=== PATIENT | male | born 1945 | race Caucasian/White ===

== ENCOUNTER → 2016-03-31 | Outpatient (CLI) | payer MEDICARE, BC ==
[2016-03-31 12:58] LABS: PROTHROMBIN TIME 21.7 SEC (11.4-15.4)
== END ==
LOC: OD 11:55
PROVIDERS: ATTEND Internal Medicine
DX: I48.0 Paroxysmal atrial fibrillation (principal)
CPT/HCPCS: 36415; 85610

== ENCOUNTER 2016-04-21 05:54 | Day surgery (SDC) | payer MEDICARE, BC ==
--- NOTE | 2016-04-15 10:51 | HISTORY AND PHYSICAL E ---
History and Physical NAME: ANGELITO SORTO : 1945 AGE: 71Y ADMITTED: 04/21/2016 ROOM: CHIEF COMPLAINT: Blood in the stool, anemia, occult GI bleed. HISTORY OF PRESENT ILLNESS: Patient admitted for upper endoscopy. The patient did have colonoscopy 09/01/2015, shows adenoma polyps and hemorrhoids, continued to have multiple transfusions, and he takes Coumadin. Because of multiple morbidities and the patient has difficulty with sedation, we feel it is indicated to be done with OR Anesthesia standby because he has a poor tolerance for sedation. At this time, the patient is being admitted for upper endoscopy to be done in the OR. Colonoscopy 01/08/2016 showing polyps. We did him in the OR, and the patient is on Coumadin. The patient did have barium swallow, it showed a question of lower esophageal ring, otherwise normal. Colonoscopy was done, and he did have polyps. Because of persistent blood in the stool and anemia, the patient is being admitted for upper endoscopy to be done in the OR with Anesthesia standby. His barium swallow 12/23/2015 shows a large hiatus hernia 5.7 cm, question of lower esophageal ring, reflux. Esophagus otherwise normal. Large hiatus hernia. His hemoglobin is 13, hematocrit 31. His INR is 1. The patient did have iron 62. PAST MEDICAL HISTORY: The patient does have: 1. Sleep apnea. 2. Coronary artery disease. 3. Atrial fibrillation. 4. Pacemaker. 5. High cholesterol. 6. Sleep apnea. 7. Anemia. 8. Large hiatus hernia. PAST SURGICAL HISTORY: 1. He did have a cardiac ablation. 2. Inguinal hernia. 3. He does have a pacemaker. 4. The patient does have history of colon polyps. MEDICATIONS: The patient takes: 1. Coumadin/warfarin. 2. Ferrous sulfate. 3. Atenolol. SOCIAL HISTORY: The patient is , does not smoke, does not drink. FAMILY HISTORY: Father had an accident. Mom had Alzheimer's. PHYSICAL EXAMINATION: GENERAL: Pleasant, alert, oriented, in no acute distress. VITAL SIGNS: Blood pressure is 120/80, pulse 80, respirations 18, temperature is 98. HEAD, EYES, EARS, NOSE, THROAT: Normal. NECK: Supple. LUNGS: Clear. ABDOMEN: Soft. NEUROLOGIC: Negative. CONCLUSION: 1. Sleep apnea. 2. Difficult to sedate. 3. Multiple comorbidities with sleep apnea. PLAN: The patient is to be scoped with Anesthesia standby, scheduled for 04/21/2016. Today is 04/14/2016, upper scope in the OR 04/21. DICTATING PHYSICIAN: SIA MENDEZ M.D. [id number] PHY#: [id number] ID: [id number] JOB#: [id number] ACCT: [id number] cc:SIA MENDEZ M.D. >
[2016-04-19 12:21] LABS: HEMATOCRIT 34.6 % (37.9-51.0); HGB HCT DIFFERENCE -1.6; MEAN CORPUSCULAR HEMOGLOBIN 24.7 pg (27.0-33.4); MEAN CORPUSCULAR HGB CONC 31.8 g/dL (32.0-36.0); MEAN CORPUSCULAR VOLUME 78 fl (80-97); RED BLOOD COUNT 4.46 10^6/uL (4.35-5.55); RED CELL DISTRIBUTION WIDTH 19.4 % (11.5-14.0); WHITE BLOOD COUNT 6.2 10^3/uL (4.0-10.5)
[~2016-04-21 05:54] MED LIST: LACTATED RINGERS 1000 ML IV PRN; LIDOCAINE 0.5% INJ-PF (5 MG/ML) 50 ML SDV SUBCUT PRN
[2016-04-21 06:39] LABS: PROTHROMBIN TIME 14.6 SEC (11.4-15.4)
[2016-04-21 06:40] LABS: PARTIAL THROMBOPLASTIN TIME 26.6 SEC (23.5-35.8)
[2016-04-21] MEDS ORDERED: PROPOFOL INJ 200 MG/20 ML VIAL IV ONE (06:43)
[2016-04-21] MEDS ORDERED: ONDANSETRON HCL INJ/PF 4 MG/2 ML SDV IV PRN (08:18)
[2016-04-21] MEDS ORDERED: DIPHENHYDRAMINE HCL 50 MG/ML VIAL IV PRN (08:18)
[2016-04-21] MEDS ORDERED: PROMETHAZINE HCL INJ 25 MG/1 ML VIAL IV PRN (08:18)
[2016-04-21 10:35] LABS: HEMATOCRIT 32.6 % (37.9-51.0); HGB HCT DIFFERENCE -2.6; MEAN CORPUSCULAR HEMOGLOBIN 24.1 pg (27.0-33.4); MEAN CORPUSCULAR HGB CONC 30.6 g/dL (32.0-36.0); MEAN CORPUSCULAR VOLUME 79 fl (80-97); RED BLOOD COUNT 4.14 10^6/uL (4.35-5.55); RED CELL DISTRIBUTION WIDTH 19.2 % (11.5-14.0); WHITE BLOOD COUNT 4.7 10^3/uL (4.0-10.5)
[2016-04-21 11:09] LABS: CREATINE KINASE MB 0.66 ng/mL (<4.55)
[2016-04-21 11:10] LABS: TROPONIN I < 0.012 ng/mL
[2016-04-21 11:28] LABS: CARCINOEMBRYONIC ANTIGEN 0.7 ng/mL (<3.0)
[2016-04-21] MEDS ORDERED: LIDOCAINE 2% INJ-PF (20 MG/ML) 10 ML AMPUL ONE (12:40)
--- NOTE | 2016-04-21 14:59 | EKG REPORT ---
SEVERITY:- ABNORMAL ECG - ATRIAL-PACED COMPLEXES LOW VOLTAGE IN FRONTAL LEADS : Confirmed by: Rosemarie Stafford MD 21-Apr-2016 14:58:35
[2016-04-21] MEDS ORDERED: SIMVASTATIN 40 MG TABLET PO ONE (16:00)
[2016-04-21] MEDS ORDERED: FERROUS SULFATE 325 MG TABLET PO ONE (16:00)
[2016-04-21] MEDS ORDERED: BENAZEPRIL HCL 20 MG TABLET PO ONE (16:00)
[2016-04-21] MEDS ORDERED: ALLOPURINOL 300 MG TABLET PO ONE (16:00)
[2016-04-21] MEDS ORDERED: ATENOLOL 50 MG TABLET PO ONE (16:00)
[2016-04-21 17:41] VITALS: BP 125/76
[2016-04-21] MEDS ORDERED: SIMVASTATIN 40 MG TABLET PO SCH (22:00)
[2016-04-21] MEDS ORDERED: PROPAFENONE 225 MG PO SCH (22:00)
--- NOTE | 2016-04-22 08:15 | DISCHARGE SUMMARY E ---
Discharge Summary NAME: ANGELITO SORTO : 1945 AGE: 71Y ADMITTED: 04/21/2016 DISCHARGED: 04/21/2016 HOSPITAL COURSE: A 71-year-old male underwent outpatient endoscopy for recurrent occult GI bleed and stools positive for blood x3. He did have upper scope today in the OR with anesthesia standby. There was a polypoid lesion in the descending duodenum. Unfortunately, the picture we took during the endoscopy failed to be printed. There was a malfunction of the printer. We obtained CT scan, and I reviewed the CT scan with Dr. Herrera, and the patient does have a good-sized polypoid lesion adjacent to the ampulla. A tertiary consult was done with Dr. Kim Grayson at [facility], and she is going to see the patient early next week for repeat endoscopy and consideration for polypectomy and/or small bowel enteroscopy. DISCHARGE INSTRUCTIONS: The patient is being discharged on a soft diet, and he is to go on Lovenox subcutaneous 100 mg daily, and we are going to stop his Coumadin and aspirin. An appointment is being made for him to be seen by Dr. Kim Grayson at [facility]. . The patient has the following problems: 1. Coronary artery disease. 2. Atrial fibrillation. 3. Pacemaker. 4. Sleep apnea. 5. Anemia. 6. Large hiatus hernia. He did have colonoscopy 09/01/2015 showing adenoma polyps and hemorrhoids. Pending evaluation and further followup with Dr. Kim Grayson at [facility]. DICTATING PHYSICIAN: SIA MENDEZ M.D. [id number] PHY#: [id number] ID: [id number] JOB#: [id number] ACCT: [id number] cc:SIA MENDEZ M.D. >
--- NOTE | 2016-04-22 08:18 | DISCHARGE SUMMARY E ---
Discharge Summary NAME: ANGELITO SORTO : 1945 AGE: 71Y ADMITTED: 04/21/2016 DISCHARGED: 04/21/2016 HOSPITAL COURSE: The patient is a 71-year-old male who presented for upper endoscopy. The patient had endoscopy in the OR which showed a polypoid lesion or pedunculated polyp and on the surrounding of the stalk, there was some vascularity of the mucosa. All in all, the patient does have a polypoid lesion in the duodenal bulb with thick stalk and some irregularity in the mucosa. The patient has defibrillator. His stool is positive for blood. Hemoglobin 11, hematocrit 34. The patient did have recent colonoscopy . His colonoscopy showed adenomatous polyp. He had multiple transfusions and Coumadin. He has multiple morbidities and difficult sedation. Upper endoscope achieved in the OR without difficulty. FINAL DIAGNOSIS: 1. Hiatus hernia. 2. Duodenal polyp. 3. The patient does have a history of sleep apnea, atrial fibrillation, and pacemaker. DISCHARGE PLAN: 1. Repeat lab studies. 2. Will make arrangement to transfer to tertiary center. DICTATING PHYSICIAN: SIA MENDEZ M.D. [id number] PHY#: [id number] ID: [id number] JOB#: [id number] ACCT: [id number] cc:SIA MENDEZ M.D. >
--- NOTE | 2016-04-22 08:28 | OPERATIVE REPORT E ---
Operative Report NAME: ANGELITO SORTO : 1945 AGE: 71Y DATE OF SURGERY: 04/21/2016 ROOM: 528 PREOPERATIVE DIAGNOSES: 1. Blood in the stool. 2. Occult GI bleed. The patient is on Coumadin and aspirin. 3. Anemia. POSTOPERATIVE DIAGNOSES: 1. Small hiatus hernia. 2. Duodenal polyp or tumor on a pedunculated thick stalk with some irregularity of the mucosa around the polyp. The patient has a duodenal polyp on a thick stalk with some vascularity around the duodenal area. The lesion is about 2 cm thick stalk. The patient is high risk. I elect to send him to a tertiary center for further evaluation and possible removal of that lesion by endoscopy in the tertiary center. The patient has defibrillator and is on Coumadin and he is at risk. PROCEDURES: 1. Esophagoscopy. 2. Gastroscopy. 3. Duodenoscopy. SURGEON: SIA MENDEZ M.D. ANESTHESIA: The patient was done in the OR with anesthesia standby. He is on Coumadin 5 mg, aspirin, iron, Lotensin, Tenormin and Zocor. PROCEDURE: After the patient was sedated in OR with conscious sedation with propofol, the pediatric gastroscope passed under guided vision with no difficulty. PREOPERATIVE DIAGNOSIS: The patient is a 47-year-old female with abdominal pain, reflux. POSTOPERATIVE DIAGNOSES: 1. Esophagitis, mild. 2. Gastritis, mild. 3. Duodenitis, mild. PROCEDURES: 1. Esophagoscopy. 2. Gastroscopy. 3. Duodenoscopy. SURGEON: SIA MENDEZ M.D. TISSUE REMOVED OR ALTERED: Gastric biopsy, H pylori. ANESTHESIA: Versed 4, fentanyl 100. DESCRIPTION OF PROCEDURE: The baby scope passed under guided vision. No difficulties. Esophagoscopy: Junction at 40 cm: Small hiatus hernia, no varices or bleeding in the esophagus. Gastroscopy: No evidence of ulcers. Duodenoscopy: Duodenal bulb shows mild duodenitis. Descending duodenum shows a polypoid lesion with thick stalk, and the polyp looked vascular. I did not feel comfortable removing this polyp because patient is high risk. We are going to send him to tertiary center for second endoscopy and possibility of removing the polyp. CONCLUSION: Duodenal polyp versus lesion. PLAN: Refer to tertiary center. DICTATING PHYSICIAN: SIA MENDEZ M.D. [id number] PHY#: [id number] ID: [id number] JOB#: [id number] ACCT: [id number] cc:SIA MENDEZ M.D. >
[2016-04-22] MEDS ORDERED: ATENOLOL 50 MG TABLET PO SCH (10:00)
[2016-04-22] MEDS ORDERED: FERROUS SULFATE 325 MG TABLET PO SCH (10:00)
[2016-04-22] MEDS ORDERED: ALLOPURINOL 300 MG TABLET PO SCH (10:00)
[2016-04-22] MEDS ORDERED: PROPAFENONE HCL 225 MG PO SCH (10:00)
[2016-04-22] MEDS ORDERED: BENAZEPRIL HCL 20 MG TABLET PO SCH (10:00)
== END 2016-04-21 18:37 | disposition home or self-care (01) ==
LOC: OROUT 05:54 → 5 14:04 → OROUT 18:37
PROVIDERS: ATTEND Specialist
PROC: 0DJ08ZZ Inspection of Upper Intestinal Tract, Via Natural or Artificial Opening Endoscopic (ICD-10-PCS; principal; 2016-04-21 08:00)
DX: K21.0 Gastro-esophageal reflux disease with esophagitis (principal); K29.70 Gastritis, unspecified, without bleeding; K29.80 Duodenitis without bleeding; K44.9 Diaphragmatic hernia without obstruction or gangrene; K31.7 Polyp of stomach and duodenum; Z79.01 Long term (current) use of anticoagulants; R97.8 Other abnormal tumor markers; G47.30 Sleep apnea, unspecified; I48.91 Unspecified atrial fibrillation; I25.10 Atherosclerotic heart disease of native coronary artery without angina pectoris; D64.9 Anemia, unspecified; E78.00 Pure hypercholesterolemia, unspecified; Z79.82 Long term (current) use of aspirin; Z95.810 Presence of automatic (implantable) cardiac defibrillator
CPT/HCPCS: 43235; 36415 ×2; 86301; 82553; 84520; 82378; 82550; 82565; 85027 ×2; 85610; 85730; 84484; 74177; 93005; 93010; A9270; J2704; J3490; 740

== ENCOUNTER → 2016-04-27 | Outpatient (CLI) | payer MEDICARE, BC ==
[2016-04-27 11:33] LABS: ABSOLUTE EOSINOPHILS # (AUTO) 0.2 10^3/uL (0.0-0.6); ABSOLUTE MONOCYTES (AUTO) 0.4 10^3/uL (0.1-1.4); ABSOLUTE NEUT (AUTO) 3.1 10^3/uL (1.7-8.2); BASOPHILS % (AUTO) 0.9 % (0-2); EOSINOPHILS % (AUTO) 5.1 % (0-6); HEMATOCRIT 35.8 % (37.9-51.0); HEMOGLOBIN 11.3 g/dL (13.5-17.0); HGB HCT DIFFERENCE -1.9; LYMPHOCYTES % (AUTO) 20.2 % (13-45); MEAN CORPUSCULAR HEMOGLOBIN 24.5 pg (27.0-33.4); MEAN CORPUSCULAR HGB CONC 31.6 g/dL (32.0-36.0); MEAN CORPUSCULAR VOLUME 78 fl (80-97); MONOCYTES % (AUTO) 7.9 % (3-13); RED BLOOD COUNT 4.62 10^6/uL (4.35-5.55); RED CELL DISTRIBUTION WIDTH 19.3 % (11.5-14.0); SEGMENTED NEUTROPHILS % (AUTO) 65.9 % (42-78); WHITE BLOOD COUNT 4.8 10^3/uL (4.0-10.5)
== END ==
LOC: OD 10:37
PROVIDERS: ATTEND Specialist
DX: D50.9 Iron deficiency anemia, unspecified (principal)
CPT/HCPCS: 36415; 85025

== ENCOUNTER → 2016-07-13 | Outpatient (CLI) | payer MEDICARE, BC ==
[2016-07-13 17:29] LABS: PROTHROMBIN TIME 17.8 SEC (11.4-15.4)
== END ==
LOC: OD 16:38
PROVIDERS: ATTEND Internal Medicine
DX: I48.0 Paroxysmal atrial fibrillation (principal)
CPT/HCPCS: 36415; 85610

== ENCOUNTER → 2016-08-02 | Outpatient (CLI) | payer MEDICARE, BC ==
[2016-08-02 15:03] LABS: PROTHROMBIN TIME 32.4 SEC (11.4-15.4)
== END ==
LOC: OD 14:13
PROVIDERS: ATTEND Internal Medicine
DX: I48.0 Paroxysmal atrial fibrillation (principal)
CPT/HCPCS: 36415; 85610

== ENCOUNTER → 2016-09-01 | Outpatient (CLI) | payer MEDICARE, BC ==
[2016-09-01 15:06] LABS: PROTHROMBIN TIME 19.7 SEC (11.4-15.4)
== END ==
LOC: OD 13:52
PROVIDERS: ATTEND Internal Medicine
DX: I48.0 Paroxysmal atrial fibrillation (principal)
CPT/HCPCS: 36415; 85610

== ENCOUNTER → 2016-09-29 | Outpatient (CLI) | payer MEDICARE, BC ==
[2016-09-29 14:24] LABS: PROTHROMBIN TIME 28.2 SEC (11.4-15.4)
[2016-09-29 14:27] LABS: ABSOLUTE EOSINOPHILS # (AUTO) 0.2 10^3/uL (0.0-0.6); ABSOLUTE LYMPHOCYTES (AUTO) 1.4 10^3/uL (0.5-4.7); ABSOLUTE MONOCYTES (AUTO) 0.3 10^3/uL (0.1-1.4); ABSOLUTE NEUT (AUTO) 4.1 10^3/uL (1.7-8.2); BASOPHILS % (AUTO) 0.5 % (0-2); EOSINOPHILS % (AUTO) 3.5 % (0-6); HEMATOCRIT 39.6 % (37.9-51.0); HEMOGLOBIN 12.6 g/dL (13.5-17.0); HGB HCT DIFFERENCE -1.8; LYMPHOCYTES % (AUTO) 22.5 % (13-45); MEAN CORPUSCULAR HEMOGLOBIN 27.2 pg (27.0-33.4); MEAN CORPUSCULAR VOLUME 85 fl (80-97); MONOCYTES % (AUTO) 5.3 % (3-13); RED BLOOD COUNT 4.64 10^6/uL (4.35-5.55); RED CELL DISTRIBUTION WIDTH 16.2 % (11.5-14.0); SEGMENTED NEUTROPHILS % (AUTO) 68.2 % (42-78); WHITE BLOOD COUNT 6.1 10^3/uL (4.0-10.5)
[2016-09-29 14:49] LABS: ANISOCYTOSIS 1+; OVALOCYTES SLIGHT; POIKILOCYTOSIS SLIGHT; TARGET CELLS SLIGHT; TEAR DROP CELLS SLIGHT
== END ==
LOC: OD 13:32
PROVIDERS: ATTEND Internal Medicine
DX: D64.9 Anemia, unspecified (principal); N40.1 Benign prostatic hyperplasia with lower urinary tract symptoms; I48.0 Paroxysmal atrial fibrillation
CPT/HCPCS: 36415; 84153; 85025; 85610

== ENCOUNTER → 2016-10-28 | Outpatient (CLI) | payer MEDICARE, BC ==
[2016-10-28 16:04] LABS: PROTHROMBIN TIME 26.2 SEC (11.4-15.4)
== END ==
LOC: OD 15:14
PROVIDERS: ATTEND Internal Medicine
DX: I48.0 Paroxysmal atrial fibrillation (principal)
CPT/HCPCS: 36415; 85610

== ENCOUNTER 2016-10-30 23:46 | Emergency (ER) | payer MEDICARE, BC ==
[2016-10-31] MEDS ORDERED: ASPIRIN 81 MG TABLET, CHEWABLE PO ONE (00:18)
[2016-10-31 00:46] LABS: ABSOLUTE EOSINOPHILS # (AUTO) 0.4 10^3/uL (0.0-0.6); ABSOLUTE LYMPHOCYTES (AUTO) 1.4 10^3/uL (0.5-4.7); ABSOLUTE MONOCYTES (AUTO) 0.4 10^3/uL (0.1-1.4); BASOPHILS % (AUTO) 0.5 % (0-2); EOSINOPHILS % (AUTO) 6.1 % (0-6); HEMATOCRIT 39.2 % (37.9-51.0); HGB HCT DIFFERENCE -0.2; LYMPHOCYTES % (AUTO) 22.4 % (13-45); MEAN CORPUSCULAR HEMOGLOBIN 28.2 pg (27.0-33.4); MEAN CORPUSCULAR HGB CONC 33.2 g/dL (32.0-36.0); MEAN CORPUSCULAR VOLUME 85 fl (80-97); RED CELL DISTRIBUTION WIDTH 14.4 % (11.5-14.0); WHITE BLOOD COUNT 6.1 10^3/uL (4.0-10.5)
[2016-10-31 01:11] LABS: ALANINE AMINOTRANSFERASE 17 U/L (21-72); ALBUMIN 3.7 g/dL (3.5-5.0); ALKALINE PHOSPHATASE 61 U/L (38-126); ANION GAP 11 (5-19); ASPARTATE AMINO TRANSFERASE 11 U/L (17-59); BILIRUBIN,DIRECT 0.3 mg/dL (0.0-0.4); BILIRUBIN,TOTAL 0.3 mg/dL (0.2-1.3); BLOOD UREA NITROGEN 12 mg/dL (7-20); CALCIUM 8.2 mg/dL (8.4-10.2); CARBON DIOXIDE 28 mmol/L (22-30); CHLORIDE 105 mmol/L (98-107); CREATINE KINASE 99 U/L (55-170); GLUCOSE 101 mg/dL (75-110); POTASSIUM 3.4 mmol/L (3.6-5.0); SODIUM 143.8 mmol/L (137-145)
[2016-10-31 01:23] LABS: CREATINE KINASE MB 1.51 ng/mL (<4.55)
[2016-10-31 01:25] LABS: TROPONIN I < 0.012 ng/mL
--- NOTE | 2016-10-31 01:54 | ER Document Report ---
ED Cardiac - General Mode of Arrival: Ambulatory Information source: Patient TRAVEL OUTSIDE OF THE [place] IN LAST 30 DAYS: No - HPI Patient complains to provider of: Palpitations Associated symptoms: Headache <MANUEL GAINES - Last Filed: 10/31/16 06:37> <ILIA KELLEY - Last Filed: 10/31/16 06:39> - General Chief Complaint: Palpitations Stated Complaint: POSSIBLE HIGH BLOOD PRESSURE Time Seen by Provider: 10/31/16 01:18 Notes: Patient is a 71 year-old male who presents to the emergency department today with complaints of a fluttering sensation in his chest. Patient states that he took his heart rate at home on his blood pressure monitor and it was running in the 120s. Patient states his blood pressure was also elevated. Patient states he was taken off of his atenolol approximately 2-3 months ago secondary to losing weight and cardiology feeling like he no longer needed to be on medication. Patient states he had an endoscopy 2 or 3 weeks ago secondary to upper abdominal pain but he has not yet received this results. Patient is on 5 mg of warfarin daily. Patient states his only other symptom with these palpitations is a slight headache. Patient denies chest pain, shortness of breath, dizziness, lightheadedness, or vomiting. (MANUEL GAINES) - Related Data Allergies/Adverse Reactions: No Known Allergies Allergy (Verified 10/30/16 23:51) Past Medical History - General Information source: Patient - Social History Smoking Status: Never Smoker Cigarette use (# per day): No Frequency of alcohol use: None Drug Abuse: None Lives with: Family - Past Medical History Cardiac Medical History: Reports: Hx Atrial Fibrillation, Hx Hypertension - MEDICATED Pulmonary Medical History: GI Medical History: Reports: Hx Hiatal Hernia - DOES NOT REQUIRE, SCHOTZ RING Musculoskeltal Medical History: Past Surgical History: Reports: Hx Pacemaker, Hx Whipple - Immunizations Hx Diphtheria, Pertussis, Tetanus Vaccination: No <MANUEL GAINES - Last Filed: 10/31/16 06:37> - Social History Family History: Reviewed & Not Pertinent <ILIA KELLEY - Last Filed: 10/31/16 06:39> Review of Systems - Review of Systems Constitutional: No symptoms reported EENT: No symptoms reported Cardiovascular: See HPI, Palpitations. denies: Chest pain, Dizziness, Lightheaded Respiratory: denies: Short of breath Gastrointestinal: No symptoms reported Genitourinary: No symptoms reported Male Genitourinary: No symptoms reported Musculoskeletal: No symptoms reported Skin: No symptoms reported Hematologic/Lymphatic: No symptoms reported Neurological/Psychological: See HPI, Headaches -: Yes All other systems reviewed and negative <MANUEL GAINES - Last Filed: 10/31/16 06:37> Physical Exam <MANUEL GAINES - Last Filed: 10/31/16 06:37> <ILIA KELLEY - Last Filed: 10/31/16 06:39> - Vital signs Vitals: Temp Pulse Resp BP Pulse Ox 97.6 F 127 H 12 162/120 H 99 10/30/16 23:53 10/30/16 23:53 10/30/16 23:53 10/30/16 23:53 10/30/16 23:53 - Notes Notes: PHYSICAL EXAM GENERAL: Alert, interacts well. No acute distress. HEAD: Normocephalic, atraumatic. EYES: Pupils equal, round, and reactive to light. Extraocular movements intact. ENT: Oral mucosa moist, tongue midline. NECK: Full range of motion. Supple. Trachea midline. LUNGS: Clear to auscultation bilaterally, no wheezes, rales, or rhonchi. No respiratory distress. HEART: Tachycardic, regular rhythm. No murmurs, gallops, or rubs. ABDOMEN: Soft, non-tender. Non-distended. Bowel sounds present in all 4 quadrants. EXTREMITIES: Moves all 4 extremities spontaneously. No edema, radial and dorsalis pedis pulses 2/4 bilaterally. No cyanosis. NEUROLOGICAL: Alert and oriented x3. Normal speech. PSYCH: Normal affect, normal mood. SKIN: Warm, dry, normal turgor. No rashes or lesions noted. (MANUEL GAINES) Course - Laboratory Result Diagrams: 10/31/16 00:36 10/31/16 00:36 <MANUEL GAINES - Last Filed: 10/31/16 06:37> - Laboratory Result Diagrams: 10/31/16 00:36 10/31/16 00:36 <ILIA KELLEY - Last Filed: 10/31/16 06:39> - Re-evaluation Re-evalutation: 10/31/16 04:01 CBC shows mild anemia with hemoglobin 13.0, no leukocytosis, coags within normal limits with an INR of 2.21, CMP grossly unremarkable minimally low potassium at 3.4, cardiac enzymes negative, chest x-ray shows no acute process, CT angiogram of the chest looking for pulmonary embolism was ordered given his history of cancer and recent surgeries. CT of the chest reveals a focal groundglass opacity in the right middle lobe measuring up to 11 mm, no evidence of pulmonary embolism. Patient will be started on Augmentin and discharged home. He was hydrated with a liter of normal saline and his heart rate normalized. Patient has a follow- up with his supervisor opening and picking on Tuesday to check his pacemaker. Patient will return should he develop any chest pain, shortness of breath or any new or concerning symptoms. 10/31/16 04:02 (ILIA KELLEY) - Vital Signs Vital signs: Temp Pulse Resp BP Pulse Ox 97.6 F 127 H 11 L 133/76 H 98 10/30/16 23:53 10/30/16 23:53 10/31/16 04:12 10/31/16 04:12 10/31/16 04:12 - Laboratory Laboratory results interpreted by me: 10/31/16 10/31/16 10/31/16 00:36 00:36 00:36 Hgb 13.0 L RDW 14.4 H Eosinophils % 6.1 H PT 25.7 H Potassium 3.4 L Calcium 8.2 L AST 11 L ALT 17 L Total Protein 6.0 L - EKG Interpretation by Me Additional EKG results interpreted by me: 10/31/16 04:02 EKG shows ectopic atrial tachycardia at a rate of 125, slight left axis deviation, normal intervals, poor R-wave progression, no ST segment elevations or depressions, no T-wave inversions with the exception of concordant T-wave inversions in leads III and aVF per my interpretation. (ILIA KELLEY) Discharge <MANUEL GAINES - Last Filed: 10/31/16 06:37> <ILIA KELLEY - Last Filed: 10/31/16 06:39> - Discharge Clinical Impression: Ectopic atrial tachycardia Right middle lobe pneumonia Qualifiers: Pneumonia type: due to unspecified organism Qualified Code(s): J18.1 - Lobar pneumonia, unspecified organism Condition: Stable Disposition: HOME, SELF-CARE Additional Instructions: You have a right middle lobe pneumonia. Given your history of cancer you should have the CAT scan repeated in 3-6 months to make certain that this is truly a pneumonia and not metastases from the cancer. At present it looks more like pneumonia. Please take the Augmentin as directed until is gone. Pneumonia Your examination indicates that you have pneumonia. This is an infection of the lung tissue, usually caused by bacteria or a virus. Symptoms include cough, fever, shaking chills, chest pain, shortness of breath, and coughing up bloody sputum. Treatment for bacterial pneumonia includes rest, antibiotics for 10 to 14 days, increasing your clear liquid intake, a cool mist humidifier at your bedside, and fever medication. Often, a repeat chest X-ray is performed in a few weeks--even if you feel better--to ascertain whether the infection has completely resolved and no underlying lung problem is present. You should call the physician if you develop persistent vomiting, high fever that does not respond to fever medication, increasing shortness of breath , confusion, or lethargy. Also, failure to improve within two to three days is an indication for re-examination. Prescriptions: Amox Tr/Potassium Clavulanate [Augmentin 875-125 mg Tablet] 1 tab PO BID #20 tablet Referrals: GELA AUGUSTE MD [Primary Care Provider] - Follow up in 1 week Scribe Attestation: 10/31/16 06:38 I personally performed the services described in the documentation, reviewed and edited the documentation which was dictated to the scribe in my presence, and it accurately records my words and actions. (ILIA KELLEY) Scribe Documentation - Scribe Written by Hector:: Hector Staton, 10/31/2016 0344 acting as scribe for :: Roseanna <MANUEL GAINES - Last Filed: 10/31/16 06:37>
[2016-10-31] MEDS ORDERED: NORMAL SALINE 1000 ML 1,000 ML IV ONE (01:55)
--- NOTE | 2016-10-31 01:59 | RADIOLOGY REPORT (SQ) ---
EXAM DESCRIPTION: CHEST SINGLE VIEW COMPLETED DATE/TIME: 10/31/2016 1:15 am REASON FOR STUDY: cp COMPARISON: Chest x-ray 06/07/2012. EXAM PARAMETERS: NUMBER OF VIEWS: One view. TECHNIQUE: Single frontal radiographic view of the chest acquired. RADIATION DOSE: NA LIMITATIONS: None. FINDINGS: LUNGS AND PLEURA: No consolidation, pneumothorax or pleural effusion. MEDIASTINUM AND HILAR STRUCTURES: No masses. Contour normal. HEART AND VASCULAR STRUCTURES: Heart normal in size. No overt vascular congestion. BONES: No acute findings. HARDWARE: There is a left-sided pacemaker. IMPRESSION: No acute radiographic finding in the chest. TECHNICAL DOCUMENTATION: JOB ID: [id number]
[2016-10-31 02:06] LABS: PROTHROMBIN TIME 25.7 SEC (11.4-15.4)
--- NOTE | 2016-10-31 03:03 | RADIOLOGY REPORT (SQ) ---
EXAM DESCRIPTION: CTA CHEST COMPLETED DATE/TIME: 10/31/2016 2:37 am REASON FOR STUDY: tachycardia, recent surgery, cancer. Status post Whipple surgery 3 months ago. COMPARISON: Chest x-ray 10/31/2016. CT abdomen and pelvis 04/21/2016. TECHNIQUE: CT scan of the chest performed using helical scanning technique with dynamic intravenous contrast injection. Images reviewed with lung, soft tissue and bone windows. Reconstructed coronal and sagittal MPR images reviewed. Additional 3 dimensional post-processing performed to develop Maximal Intensity Projection images (VA P). All images stored on PACS. All CT scanners at this facility use dose modulation, iterative reconstruction, and/or weight based d osing when appropriate to reduce radiation dose to as low as reasonably achievable (ALARA). [facility]: Dose Right [facility]: CareDose [facility]: Dose Right [facility]: Teradose 4D [facility]: AdmitSee CONTRAST TYPE AND DOSE: contrast/concentration: Isovue 370.00 mg/ml; Total Contrast Delivered: 80.0 ml; Total Saline Delivered: 110.0 ml RENAL FUNCTION: Creatinine 0.90 RADIATION DOSE: Up-to-date CT equipment and radiation dose reduction techniques were employed. CTDIv ol: 13.2 - 31.5 mGy. DLP: 1217 mGy-cm. . LIMITATIONS: None. FINDINGS: LUNGS AND PLEURA: Focal ground-glass opacity in the right middle lobe measuring up to 11 m m (image 52/136). Mild bibasilar atelectasis. No pleural effusion or pneumothorax. AORTA AND GREAT VESSELS: No thoracic aortic aneurysm or dissection. HEART: No pericardial effusion. Coronary arteries calcifications are noted. PULMONARY ARTERIES: No emboli visualized in the main pulmonary arteries or the segmental branches. HILAR AND MEDIASTINAL STRUCTURES: Right paratracheal lymph node measuring 11 mm in short axis. Right hilar lymph node measuring 14 mm in short axis. HARDWARE: There is a left-sided pacemaker. UPPER ABDOMEN: There is pneumobilia. Soft tissue stranding is noted in the anterior abdominal wall. The spleen is enlarged measuring 15 cm. THYROID AND OTHER SOFT TISSUES: 8 mm hypodense nodule at the visualized right thyroid lobe. BONES: Degenerative changes in the spine. 3D MIPS: Confirm above findings. IMPRESSION: No pulmonary emboli. Focal ground-glass opacity in the right middle lobe, may be secondary to acute infection/ inflammatio n such as pneumonia. Followup CT after treatment recommended to ensure complete resolution and exclu de a metastatic lesion. Mild bibasilar atelectasis. Mild right hilar and mediastinal adenopathy, this can be reassessed at the followup CT. Pneumobilia. Soft tissue stranding in the anterior abdominal wall, may be secondary to recent surger y. Splenomegaly. 8 mm hypodense nodule at the visualized right thyroid lobe. This can be better evaluated with dedica chau ultrasound. TECHNICAL DOCUMENTATION: JOB ID: [id number] [facility] Quality ID # [id number]: Final reports with documentation of one or more dose reduction techniques (e.g., Au tomated exposure control, adjustment of the mA and/or kV according to patient size, use of iterative reconstruction technique) 2010 [employer]- All Rights Reserved
[2016-10-31 04:26] VITALS: BP 133/76
--- NOTE | 2016-10-31 08:09 | EKG REPORT ---
SEVERITY:- ABNORMAL ECG - ATRIAL FLUTTER BORDERLINE LEFT AXIS DEVIATION : Confirmed by: Jey Adame MD 31-Oct-2016 08:08:18
== END 2016-10-31 04:27 | disposition home or self-care (01) ==
LOC: ER 23:46
DX: J18.1 Lobar pneumonia, unspecified organism (principal); R00.0 Tachycardia, unspecified; I10 Essential (primary) hypertension; Z98.890 Other specified postprocedural states; Z79.01 Long term (current) use of anticoagulants
CPT/HCPCS: 93005; 99285; 36415; 82553; 82550; 85025; 85610; 80053; 84484; 71010; 71275; 93010; A9270; J7030

== ENCOUNTER 2016-11-11 06:29 | Day surgery (SDC) | payer MEDICARE, BC ==
[~2016-11-11 06:29] MED LIST changes: +KETOROLAC TROMETHAMINE 0.45% 4 DROP/0.4 ML DROPERETTE OS PRN; -LACTATED RINGERS 1000 ML IV PRN; -LIDOCAINE 0.5% INJ-PF (5 MG/ML) 50 ML SDV SUBCUT PRN
[2016-11-11] MEDS: TETRACAINE HCL 0.5% OPH SOLN 2 ML OS PRN ×4 (06:46→07:34)
[2016-11-11] MEDS: CYCLOPENTOLATE 0.2%/PHENYLEPHRINE 1% OPH SOLN 2 ML OS PRN ×3 (06:46→07:10)
[2016-11-11] MEDS: BESIFLOXACIN HCL 0.6% OPH SUSP 5 ML BOTTLE OS PRN ×4 (06:47→07:56)
[2016-11-11] MEDS: TROPICAMIDE 1% OPH SOLN 3 ML OS PRN ×2 (06:57→07:10)
[2016-11-11] MEDS ORDERED: MIDAZOLAM 2 MG/2 ML INJ ONE (06:59)
[2016-11-11] MEDS ORDERED: LIDOCAINE 1% INJ-PF (10 MG/ML) 30 ML SDV ONE (07:15)
[2016-11-11] MEDS ORDERED: EPINEPHRINE INJ/PF 1 MG/1 ML AMPULE ONE (07:15)
[2016-11-11] MEDS ORDERED: CHONDR SU A NA/HYALUR INTRAOC KIT (SURGICARE) ONE (07:15)
--- NOTE | 2016-11-12 07:52 | [facility] OPERATIVE REPORT E ---
[facility] Operative Report NAME: ANGELITO SORTO AGE: 71Y DATE OF SURGERY: 11/11/2016 ROOM: PREOPERATIVE DIAGNOSIS: CATARACT, LEFT EYE. POSTOPERATIVE DIAGNOSIS: CATARACT, LEFT EYE. OPERATION: Cataract extraction with intraocular lens implant of the left eye. SURGEON: DANA GUERRERO M.D. ANESTHESIA: Topical. PROCEDURE: After obtaining appropriate consent, the patient's left eye was prepped and draped in sterile fashion as well as the surgeon in a sterile manner and cataract surgery was started. First a paracentesis blade was used to make a small side-port incision. Viscoelastic was used to inflate the anterior chamber. Next a 2.4 mm incision was made with the paracentesis blade. A continuous capsulorrhexis incision was made using a cystotome and Utrata forceps. Following this hydrodissection was carried out to make the lens fully loose and mobile and it was rotated 90 degrees. Following this, a fvjlkg-dru-oafipic technique was used to phacoemulsify the lens with a CDE of 13.4. The remaining cortex was removed with irrigation/aspiration. Provisc was instilled into the capsular bag to inflate the bag. A SN60WF, 17.0 diopter lens was placed. The remaining viscoelastic material was removed with irrigation/aspiration. Following this, a 10-0 Nylon suture was used to close the incision and it was found to be watertight. Vigamox was instilled in the eye and a protective shield was placed over the eye. The patient returned to the postoperative recovery in stable condition. DICTATING PHYSICIAN: DANA GUERRERO M.D. [id number] PHY#: [id number] ID: [id number] JOB#: [id number] ACCT: [id number] cc:DANA GUERRERO M.D. > [facility] CENTERNelda
--- NOTE | 2016-11-12 11:42 | [facility] DISCHARGE SUMMARY E ---
[facility] Discharge Summary NAME: ANGELITO SORTO AGE: 71Y ADMITTED: 11/11/2016 DISCHARGED: 11/11/2016 DIAGNOSIS: CATARACT, LEFT EYE. SUMMARY: This is a 71-year-old male who underwent cataract extraction of the left eye. He underwent surgery because he was feeling unbalanced due to his vision difference and trouble seeing words on the TV. DISCHARGE INSTRUCTIONS: He should be on a regular diet, no bending at his waist, and no heavy lifting. He should use his Besivance, Ilevro and Durezol at 3 p.m. and 8 p.m. and sleep with a rigid shield. I will see him for his 1-day postoperative tomorrow. DICTATING PHYSICIAN: DANA GUERRERO M.D. [id number] [id number] PHY#: [id number] ID: [id number] JOB#: [id number] ACCT: [id number] cc:DANA GUERRERO M.D. >
--- NOTE | 2016-11-12 16:47 | [facility] OPERATIVE REPORT E ---
[facility] Operative Report NAME: ANGELITO SORTO AGE: 71Y DATE OF SURGERY: 11/11/2016 ROOM: PREOPERATIVE DIAGNOSIS: CATARACT, LEFT EYE. POSTOPERATIVE DIAGNOSIS: CATARACT, LEFT EYE. OPERATION: Cataract extraction with intraocular lens implant of the left eye. SURGEON: DANA GUERRERO M.D. ANESTHESIA: Topical. PROCEDURE: After obtaining appropriate consent, the patient's left eye was prepped and draped in sterile fashion as well as the surgeon in a sterile manner and cataract surgery was started. First, a paracentesis blade was used to make a small side-port incision. Viscoelastic was used to inflate the anterior chamber. Next a 2.4-mm incision was made with the paracentesis blade. A continuous capsulorrhexis incision was made using a cystotome and Utrata forceps. Following this hydrodissection was carried out to make the lens fully loose and mobile and it was rotated 90 degrees. Following this, a wlaccw-mfk-cofplps technique was used to phacoemulsify the lens with a CDE of 10.13. The remaining cortex was removed with irrigation/aspiration. Provisc was instilled into the capsular bag to inflate the bag. A SN60WF, 17.0 diopter lens was placed. The remaining viscoelastic material was removed with irrigation/aspiration. Following this, a 10-0 nylon suture was used to close the incision and it was found to be watertight. Vigamox was instilled in the eye and a protective shield was placed over the eye. The patient returned to the postoperative recovery in stable condition. DICTATING PHYSICIAN: DANA GUERRERO M.D. [id number] PHY#: [id number] ID: [id number] JOB#: [id number] ACCT: [id number] cc:DANA GUERRERO M.D. >
== END 2016-11-11 08:39 | disposition home or self-care (01) ==
LOC: SC 06:29
PROVIDERS: ATTEND Internal Medicine
PROC: 08RK3JZ Replacement of Left Lens with Synthetic Substitute, Percutaneous Approach (ICD-10-PCS; principal; 2016-11-11 07:30)
DX: H25.12 Age-related nuclear cataract, left eye (principal); Z96.1 Presence of intraocular lens; Z98.41 Cataract extraction status, right eye; H04.123 Dry eye syndrome of bilateral lacrimal glands; H43.813 Vitreous degeneration, bilateral; I10 Essential (primary) hypertension; M10.9 Gout, unspecified; E78.00 Pure hypercholesterolemia, unspecified; Z79.899 Other long term (current) drug therapy; Z79.01 Long term (current) use of anticoagulants
CPT/HCPCS: 66984; V2632; J2250; J3490 ×2; A9270; J0171; 142

== ENCOUNTER → 2016-11-30 | Outpatient (CLI) | payer MEDICARE, BC ==
[2016-11-30 16:27] LABS: PROTHROMBIN TIME 27.5 SEC (11.4-15.4)
== END ==
LOC: OD 15:27
PROVIDERS: ATTEND Internal Medicine
DX: I48.0 Paroxysmal atrial fibrillation (principal)
CPT/HCPCS: 36415; 85610

== ENCOUNTER 2016-12-05 18:04 | Inpatient (IN) | payer MEDICARE, BC ==
--- NOTE | 2016-12-05 18:28 | ER Document Report ---
ED Medical Screen (RME) - General Chief Complaint: Palpitations Stated Complaint: DIZZINESS,RAPID PULSE Time Seen by Provider: 12/05/16 18:22 Notes: 8-year-old patient with history of paroxysmal atrial flutter reports not felt well since yesterday, he was out of town. When he got home he put on his blood pressure monitor and found that his heart was beating fast so he came up to the emergency room. He denies chest pain or shortness of breath. I have greeted and performed a rapid initial assessment of this patient. A comprehensive ED assessment and evaluation of the patient, analysis of test results and completion of the medical decision making process will be conducted by additional ED providers. TRAVEL OUTSIDE OF THE [place] IN LAST 30 DAYS: No - Related Data Allergies/Adverse Reactions: No Known Allergies Allergy (Verified 12/05/16 18:21) Past Medical History - Social History Chew tobacco use (# tins/day): No Frequency of alcohol use: None Drug Abuse: None - Past Medical History Cardiac Medical History: Reports: Hx Atrial Fibrillation, Hx Hypercholesterolemia, Hx Hypertension Denies: Hx Congestive Heart Failure, Hx Coronary Artery Disease, Hx Heart Attack, Hx Heart Murmur Pulmonary Medical History: Denies: Hx Asthma, Hx Bronchitis, Hx COPD, Hx Pneumonia Neurological Medical History: Denies: Hx Cerebrovascular Accident, Hx Seizures Renal/ Medical History: Denies: Hx Peritoneal Dialysis GI Medical History: Reports: Hx Hiatal Hernia - DOES NOT REQUIRE, SCHOTZ RING. Denies: Hx Hepatitis, Hx Ulcer Musculoskeltal Medical History: Denies Hx Arthritis Psychiatric Medical History: Denies: Hx Depression Infectious Medical History: Denies: Hx Hepatitis Past Surgical History: Reports: Hx Cholecystectomy, Hx Pacemaker, Hx Whipple. Denies: Hx Open Heart Surgery - Immunizations Hx Diphtheria, Pertussis, Tetanus Vaccination: No Physical Exam - Vital signs Vitals: Temp Pulse Resp BP Pulse Ox 98.4 F 130 H 20 131/83 H 98 12/05/16 18:18 12/05/16 18:18 12/05/16 18:18 12/05/16 18:18 12/05/16 18:18 Course - Vital Signs Vital signs: Temp Pulse Resp BP Pulse Ox 98.4 F 130 H 20 131/83 H 98 12/05/16 18:18 12/05/16 18:18 12/05/16 18:18 12/05/16 18:18 12/05/16 18:18
[2016-12-05 19:03] LABS: ABSOLUTE BASOPHILS # (AUTO) 0.1 10^3/uL (0.0-0.2); ABSOLUTE EOSINOPHILS # (AUTO) 0.2 10^3/uL (0.0-0.6); ABSOLUTE LYMPHOCYTES (AUTO) 1.4 10^3/uL (0.5-4.7); ABSOLUTE MONOCYTES (AUTO) 0.5 10^3/uL (0.1-1.4); ABSOLUTE NEUT (AUTO) 4.4 10^3/uL (1.7-8.2); BASOPHILS % (AUTO) 1.5 % (0-2); EOSINOPHILS % (AUTO) 3.3 % (0-6); HEMATOCRIT 40.6 % (37.9-51.0); HEMOGLOBIN 13.6 g/dL (13.5-17.0); HGB HCT DIFFERENCE 0.2; LYMPHOCYTES % (AUTO) 21.6 % (13-45); MEAN CORPUSCULAR HEMOGLOBIN 27.7 pg (27.0-33.4); MEAN CORPUSCULAR HGB CONC 33.4 g/dL (32.0-36.0); MEAN CORPUSCULAR VOLUME 83 fl (80-97); MONOCYTES % (AUTO) 7.4 % (3-13); RED BLOOD COUNT 4.89 10^6/uL (4.35-5.55); SEGMENTED NEUTROPHILS % (AUTO) 66.2 % (42-78); WHITE BLOOD COUNT 6.7 10^3/uL (4.0-10.5)
[2016-12-05] MEDS ORDERED: DILTIAZEM HCL/D5W 125 MG/125 ML RTUINJ IV PRN (19:09)
[2016-12-05 19:16] LABS: ALANINE AMINOTRANSFERASE 24 U/L (21-72); ALBUMIN 4.1 g/dL (3.5-5.0); ALKALINE PHOSPHATASE 61 U/L (38-126); ANION GAP 14 (5-19); ASPARTATE AMINO TRANSFERASE 19 U/L (17-59); BILIRUBIN,DIRECT 0.4 mg/dL (0.0-0.4); BILIRUBIN,TOTAL 0.5 mg/dL (0.2-1.3); BLOOD UREA NITROGEN 16 mg/dL (7-20); CALCIUM 9.7 mg/dL (8.4-10.2); CARBON DIOXIDE 27 mmol/L (22-30); CHLORIDE 102 mmol/L (98-107); CREATINE KINASE 101 U/L (55-170); CREATININE RESULT 0.99 mg/dL (0.52-1.25); GLUCOSE 100 mg/dL (75-110); MAGNESIUM 1.8 mg/dL (1.6-2.3); POTASSIUM 3.9 mmol/L (3.6-5.0); SODIUM 142.9 mmol/L (137-145); TOTAL PROTEIN 6.6 g/dL (6.3-8.2)
[2016-12-05 19:49] LABS: PROTHROMBIN TIME 13.1 SEC (11.4-15.4)
--- NOTE | 2016-12-05 19:53 | RADIOLOGY REPORT (SQ) ---
EXAM DESCRIPTION: CHEST SINGLE VIEW COMPLETED DATE/TIME: 12/05/2016 7:30 pm REASON FOR STUDY: atrial flutter, tachycardia COMPARISON: 10/31/2016 EXAM PARAMETERS: NUMBER OF VIEWS: One view. TECHNIQUE: Single frontal radiographic view of the chest acquired. RADIATION DOSE: NA LIMITATIONS: None. FINDINGS: LUNGS AND PLEURA: No acute opacities, masses or pneumothorax. No pleural effusion. MEDIASTINUM AND HILAR STRUCTURES: Stable. HEART AND VASCULAR STRUCTURES: Heart normal in size. Normal vasculature. BONES: No acute findings. HARDWARE: 2 lead cardiac pacer. OTHER: No other significant finding. IMPRESSION: NO ACUTE RADIOGRAPHIC FINDING IN THE CHEST. TECHNICAL DOCUMENTATION: JOB ID: [id number]
[2016-12-05] MEDS ORDERED: POTASSIUM CHLORIDE 10 MEQ TABLET.SA PO ONE (19:58)
--- NOTE | 2016-12-05 20:05 | EKG REPORT ---
SEVERITY:- ABNORMAL ECG - ATRIAL FLUTTER BORDERLINE PROLONGED QT INTERVAL : Confirmed by: Jey Adame MD 05-Dec-2016 20:05:30
[2016-12-05] MEDS ORDERED: NORMAL SALINE 500 ML IV PRN (20:40)
--- NOTE | 2016-12-05 21:58 | ER Document Report ---
ED Cardiac - General Chief Complaint: Palpitations Stated Complaint: DIZZINESS,RAPID PULSE Time Seen by Provider: 12/05/16 18:22 Mode of Arrival: Ambulatory Information source: Patient Notes: This is a 71-year-old man with a history of paroxysmal atrial fibrillation, with a pacemaker who presents to the emergency room with palpitations, fluttering in his chest and a fast heartbeat. Patient states his normal heart rate is normally 70. He does report having paroxysmal atrial fibrillation for a long time and that he required pacemaker placement a few years ago because he got into problems with bradycardia. Patient states he can always tell when he is going into atrial fibrillation. He states that he was out working in the yard for several hours yesterday and was tired. He states that he noticed that his heart rate was fast today and that he was having some fluttering. He is unable to tell me exactly when his symptoms started however and he states it could have been for the last several days. TRAVEL OUTSIDE OF THE [place] IN LAST 30 DAYS: No - HPI Patient complains to provider of: Palpitations Use of: denies: Alcohol, Amphetamines, Bath salts, Caffeine, Cocaine, Decongestants, Other Was the onset of pain: Gradual Is the pain a: New problem Chest pain location: No: Substernal, Axillary, Back, Pleuritic, Under breast, Other Chest pain radiation location: denies: Left jaw, Left arm, Left shoulder, Right jaw, Right arm, Right shoulder, Back, Neck, None Cardiac risk factors: Hypertension Associated symptoms: Palpitations Exacerbated by: Denies Relieved by: Nothing Similar symptoms previously: Yes Recently seen / treated by doctor: Yes - Related Data Allergies/Adverse Reactions: No Known Allergies Allergy (Verified 12/05/16 18:21) Past Medical History - General Information source: Patient - Social History Smoking Status: Never Smoker Cigarette use (# per day): No Chew tobacco use (# tins/day): No Frequency of alcohol use: None Drug Abuse: None Lives with: Family Family History: Reviewed & Not Pertinent Patient has suicidal ideation: No Patient has homicidal ideation: No - Past Medical History Cardiac Medical History: Reports: Hx Atrial Fibrillation, Hx Hypercholesterolemia, Hx Hypertension Denies: Hx Congestive Heart Failure, Hx Coronary Artery Disease, Hx Heart Attack, Hx Heart Murmur Pulmonary Medical History: Denies: Hx Asthma, Hx Bronchitis, Hx COPD, Hx Pneumonia Neurological Medical History: Denies: Hx Cerebrovascular Accident, Hx Seizures Renal/ Medical History: Denies: Hx Peritoneal Dialysis GI Medical History: Reports: Hx Hiatal Hernia - DOES NOT REQUIRE, SCHOTZ RING. Denies: Hx Hepatitis, Hx Ulcer Musculoskeltal Medical History: Denies Hx Arthritis Psychiatric Medical History: Denies: Hx Depression Infectious Medical History: Denies: Hx Hepatitis Past Surgical History: Reports: Hx Cholecystectomy, Hx Pacemaker, Hx Whipple. Denies: Hx Open Heart Surgery - Immunizations Hx Diphtheria, Pertussis, Tetanus Vaccination: No Review of Systems - Review of Systems Constitutional: denies: Chills, Fever EENT: No symptoms reported Cardiovascular: See HPI Respiratory: No symptoms reported Gastrointestinal: No symptoms reported Genitourinary: No symptoms reported Male Genitourinary: No symptoms reported Musculoskeletal: No symptoms reported Skin: No symptoms reported Hematologic/Lymphatic: No symptoms reported Neurological/Psychological: No symptoms reported Physical Exam - Vital signs Vitals: Temp Pulse Resp BP Pulse Ox 98.4 F 130 H 20 131/83 H 98 12/05/16 18:18 12/05/16 18:18 12/05/16 18:18 12/05/16 18:18 12/05/16 18:18 Notes: Physical exam: GENERAL: HEAD: Atraumatic, normocephalic. EYES: Pupils equal round and reactive to light, extraocular movements intact, sclera anicteric, conjunctiva are normal. ENT: TMs normal, nares patent, oropharynx clear without exudates. Moist mucous membranes. NECK: Normal range of motion, supple without obvious mass or JVD. LUNGS: Breath sounds clear to auscultation bilaterally and equal. No wheezes rales or rhonchi. HEART: Tachycardic ABDOMEN: Soft, normoactive bowel sounds. No tenderness to palpation. No guarding, no rebound. No masses appreciated. EXTREMITIES: Normal range of motion, no pitting or edema. No clubbing or cyanosis. NEUROLOGICAL: Cranial nerves II through XII grossly intact. Normal speech, moving all extremities. PSYCH: Normal mood, normal affect. SKIN: Warm, Dry, normal turgor, no rashes or lesions noted. 71-year-old man, alert and oriented 3, no acute distress Course - Re-evaluation Re-evalutation: 12/05/16 21:58 Note: The patient's normal heart rate is in the 70s. He does have a strong history of paroxysmal atrial fibrillation. His EKG shows an ectopic atrial pacemaker in the 120s. It does appear regular. I have discussed may be trying some adenosine in the emergency room to address this rate. He is adamantly against this. He states he had had adenosine in the past and did not like it at all. Given this, I have placed him on an IV Cardizem drip. The plan will also be to replace his electrolytes, follow cardiac enzymes. 12/05/16 22:28 Note: I reviewed the patient's presentation on October 30. He did have tachycardia at that time which resolved spontaneously. He did have a CT for workup of pulmonary embolus. It did not show any pulmonary embolus, but it did show a possible pneumonia for which he was treated. Additionally, there was question of mediastinal adenopathy and given his history (he has a history of a Whipple in the past), a metastatic lesion could not be ruled out. It was recommended that he have a follow-up CT in the past 3 months. I did inquire with the patient about his insight into the CT. He said he did discuss it with his primary care physician (Dr. Swift) and that the plan was to get a CT at 3 months to assess if the lesion was still there. - Vital Signs Vital signs: Temp Pulse Resp BP Pulse Ox 98.4 F 130 H 20 133/91 H 100 12/05/16 18:18 12/05/16 18:18 12/05/16 18:18 12/05/16 22:01 12/05/16 22:01 - Laboratory Result Diagrams: 12/05/16 18:43 12/05/16 18:43 Laboratory results interpreted by me: 12/05/16 18:43 RDW 15.0 H - Diagnostic Test Radiology reviewed: Image reviewed, Reports reviewed - Chest x-ray shows no infiltrates or effusions - EKG Interpretation by Il Rate: Tachycardia - Tachycardia with a ventricular rate of 127, it does appear regular. EKG shows Discharge - Discharge Clinical Impression: Paroxysmal atrial fibrillation Condition: Stable Disposition: ADMITTED INPATIENT Admitting Provider: Hospitalist - Dr. Magallon Unit Admitted: [facility] - Dr Magallon
[2016-12-05 22:11] LABS: APPEARANCE,URINE CLEAR; BILIRUBIN,URINE NEGATIVE (NEGATIVE); GLUCOSE, URINE NEGATIVE (NEGATIVE); KETONES,URINE NEGATIVE (NEGATIVE); LEUKOCYTE ESTERASE,URINE NEGATIVE (NEGATIVE); NITRITE,URINE NEGATIVE (NEGATIVE); PROTEIN,URINE NEGATIVE (NEGATIVE); URINE SPECIFIC GRAVITY 1.006; UROBILINOGEN,URINE NEGATIVE mg/dL (<2.0)
[2016-12-06] MEDS ORDERED: DILTIAZEM HCL/D5W 125 MG/125 ML RTUINJ IV PRN (01:43)
[2016-12-06] MEDS ORDERED: DILTIAZEM HCL INJ 25 MG/5 ML VIAL IV PRN (01:52)
[2016-12-06] MEDS ORDERED: MAG HYDROX/AL HYDROX/SIMETH SUSP 30 ML UDCUP PO PRN (01:54)
[2016-12-06] MEDS ORDERED: ACETAMINOPHEN 325 MG TABLET PO PRN (01:57)
[2016-12-06] MEDS ORDERED: PROMETHAZINE HCL 25 MG TABLET PO PRN (01:57)
--- NOTE | 2016-12-06 02:12 | PDOC H&P ---
History of Present Illness Admission Date/PCP: 12/05/16 22:11 GELA AUGUSTE MD Cardiology Dr. Cristal Leahy Patient complains of: Rapid pulse History of Present Illness: ANGELITO SORTO is a 71 year old male with known paroxysmal atrial fibrillation, on Propafenone and Coumadin for same who presents to the emergency room for evaluation of above complaint. Patient has been discussed with emergency room physician who evaluated the patient. Initial EKG revealed ectopic atrial tachycardia, rate of 127. Started on a Cardizem drip which is acceptably controlled his right so far. States that normally his heart rate is approximately 70. Denies nausea vomiting, fever chills, diarrhea or dysuria. No chest or abdominal pain. Several hours yesterday working out in his yard. States he not sure exactly when the onset of his rapid irregular heartbeat was; states he typically has difficulty sensing this. No recent change in his medications, other than the fact his Coumadin is currently on hold for a planned prostatic biopsy on the of this month for an elevated PSA. Compliant with his medications. Currently resting quietly, without specific complaint. Dictation via voice recognition software. Laboratory results are listed in [employer] and are reviewed. X-ray summary results are listed below, with full report(s) reviewed. . EKG reviewed. Social history/personal habits: . 3 adult children. 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 No use of alcohol tobacco or illicit drugs. Allergies/adverse reactions are listed in [employer] and are reviewed. Home medications initially autopopulated into [email or web address] may not accurately reflect patient's true medications, dosages, and/or frequencies. communications tower technician to reconcile medications. Unfortunately, patient not certain of all medications/dosages/frequencies. REVIEW OF SYSTEMS: Constitutional: No fever or chills. Eyes: Wears glasses. ENT: No swallowing problems or complaints. Denies hearing loss. Pulmonary: No current complaints. Cardiovascular: See history and present illness. Gastrointestinal: No current complaints, including nausea or vomiting. Skin: No current complaints, including rashes. Hematologic: Easy bruising. Neurologic: No current complaints, including numbness or tingling. Musculoskeletal: No current or chronic joint complaints, such as arthritis. Psychiatric: Denies anxiety or depression. Endocrine: No current complaints, including polyuria. Genitourinary: No current complaints, including dysuria. PHYSICAL EXAMINATION: 5 feet 8 inches tall. 97.2 kg. BMI 32.6 kg/m. Pulse 112 and slightly irregular. Blood pressure 110/83. Respirations are 17 and unlabored. 97% saturation on room air. Temperature 98.3. Somewhat obese otherwise well-developed male appearing a number of years younger than his stated age. Pleasant awake alert and cooperative. No obvious distress other than perhaps mildly anxious. Skin is warm and dry. No grossly obvious evidence of rash in areas of skin examined. No subcutaneous nodules palpated. ENT: Hearing grossly normal to normal conversation. Tongue midline on protrusion pink and slightly tacky. Eyes: No scleral icterus. Pupils equal and reactive to light at [address] conjunctivae. Neck is supple and nontender to gentle active range of motion and palpation. Midline trachea. No palpable thyroid nodule mass enlargement or tenderness. Lymphatic: No palpable cervical or clavicular nodes. Neck and lymphatic exams limited by patient body habitus. Psychiatric: Reasonable insight into acute and chronic medical issues. Oriented to time location and why here. Lungs: Auscultation reveals clear and equal breath sounds bilaterally. No use of accessory respiratory muscles. Cardiovascular: Heart slightly irregular rate and rhythm, without gallop murmur or rub. No carotid or abdominal aortic bruits. No ankle or pedal edema. Palpable posterior tibial pulses. Abdomen:soft slightly obese nontender with positive bowel sounds. Unable to adequately evaluate abdomen for masses or organomegaly due to body habitus. Extremities: Feet are warm and dry. No calf tenderness to compression. No grossly obvious visual evidence of calf swelling. Gentle manipulation of lower extremities fails to reveal any obvious evidence of injury or instability to knees hips or ankles. Neurologic: Moves upper extremities grossly normally. Patellar reflexes absent. Absent Babinski. Light touch is intact at feet. Dorsiflexion and plantarflexion of feet 5 / 5 and symmetric. Past Medical History Cardiac Medical History: Reports: Atrial Fibrillation, Hyperlipidema, Hypertension Denies: Congestive Heart Failure, Coronary Artery Disease, DVT, Myocardial Infarction, Pulmonary Embolism, Heart Murmur Pulmonary Medical History: Reports: Sleep Apnea - Uncertain settings; no home O2 Denies: Asthma, Bronchitis, Chronic Obstructive Pulmonary Disease (COPD), Pneumonia EENT Medical History: Reports: Eyes - Glasses Denies: Ears, Throat Neurological Medical History: Denies: Hemorrhagic CVA, Ischemic CVA, Seizures Endocrine Medical History: Denies: Diabetes Mellitus Type 1, Diabetes Mellitus Type 2, Hyperthyroidism, Hypothyroidism Renal/ Medical History: Reports: Other - Elevated PSA; prostate biopsy scheduled 12/14/2016 Malignancy Medical History: Reports: Pancreatic Cancer - Status post Whipple May 2016, [facility] GI Medical History: Reports: Gastroesophageal Reflux Disease - History of Denies: Cirrhosis, Hepatitis, Peptic Ulcer Disease Musculoskeltal Medical History: Denies: Arthritis Skin Medical History: Reports: None Psychiatric Medical History: Denies: Alcohol Dependency, Depression, General Anxiety Disorder, Substance Abuse, Tobacco Dependency Hematology: Reports: Other - Easy bruising Infectious Medical History: Denies: Hepatitis B, Hepatitis C Past Surgical History Past Surgical History: Reports: Cholecystectomy, Pacemaker, Other - Whipple resection, May 2016, [facility] Social History Information Source: Patient, Emergency Med Personnel, [facility] Records Lives with: Spouse/Significant other Smoking Status: Unknown if Ever Smoked Frequency of Alcohol Use: None Hx Recreational Drug Use: No Drugs: None Hx Prescription Drug Abuse: No - Advance Directive Resuscitation Status: Full Code Surrogate healthcare decision maker:: Family History Family History: Reviewed & Not Pertinent Parental Family History Reviewed: Yes - Father after a fall; mother of dementia Children Family History Reviewed: Yes - Healthy Sibling(s) Family History Reviewed.: Yes - Brother with arthritis Medication/Allergy Home Medications: Aspirin [Aspirin 81 mg Chewable Tablet] 81 mg PO DAILY 08/25/11 Benazepril HCl [Lotensin 20 mg Tablet] 20 mg PO DAILY 08/25/11 Simvastatin [Zocor 40 mg Tablet] 40 mg PO QHS 08/25/11 Warfarin Sodium [Coumadin] 5 mg PO DAILY 08/25/11 Allopurinol [Zyloprim 300 mg Tablet] 300 mg PO DAILY 12/18/14 Propafenone HCl 225 mg PO DAILY 12/18/14 Allergies/Adverse Reactions: No Known Allergies Allergy (Verified 12/05/16 18:21) Physical Exam Vital Signs: Temp Pulse Resp BP Pulse Ox 98.3 F 128 H 17 110/83 97 12/06/16 01:16 12/06/16 01:16 12/06/16 01:16 12/06/16 01:16 12/06/16 01:16 Intake & Output 12/05/16 12/06/16 12/07/16 00:59 00:59 00:59 Weight 97.2 kg Results Impressions: Chest X-Ray 12/05/16 18:24 IMPRESSION: NO ACUTE RADIOGRAPHIC FINDING IN THE CHEST. Assessment & Plan - Diagnosis (1) Atrial fibrillation with RVR Is this a current diagnosis for this admission?: Yes Plan: Continue Cardizem drip; wean as tolerated. Serial troponins. No chest pain. I have strongly encouraged patient not to get out of bed without notifying staff , to avoid a fall with injury. Knee high SCDs for DVT prophylaxis, along with subcutaneous Lovenox. Coumadin currently on hold for plan prostatic biopsy on the of this month. Impression and plans were discussed with patient, who concurs. Time spent in evaluation and management of patient: 70 minutes. (2) DVT prophylaxis Is this a current diagnosis for this admission?: Yes (3) HLD (hyperlipidemia) Qualifiers: Hyperlipidemia type: unspecified Qualified Code(s): E78.5 - Hyperlipidemia , unspecified Is this a current diagnosis for this admission?: Yes Plan: Resume home medications as appropriate once these have been determined and reviewed. (4) JACOB (obstructive sleep apnea) Is this a current diagnosis for this admission?: Yes Plan: CPAP nightly - Time Time Spent: 50 to 70 Minutes Within: within 48 hours - Inpatient Certification Based on my medical assessment, after consideration of the patient's comorbidities, presenting symptoms, or acuity I expect that the services needed warrant INPATIENT care.: Yes I certify that my determination is in accordance with my understanding of Medicare's requirements for reasonable and necessary INPATIENT services [42 CFR 412.3e].: Yes Medical Necessity: Need Close Monitoring Due to Risk of Patient Decompensation, Need For Continuous Telemetry Monitoring, Risk of Complication if Not Cared For in Hospital Post Hospital Care: D/C or Transfer Summary
[2016-12-06] MEDS ORDERED: ENOXAPARIN SODIUM INJ 40 MG/0.4 ML DISP.SYRIN SUBCUT SCH (10:00)
[2016-12-06] MEDS ORDERED: DOCUSATE SODIUM 100 MG CAPSULE PO SCH (10:00)
[2016-12-06] MEDS ORDERED: DILTIAZEM HCL 120 MG CAP.SR.24H PO ONE (13:31)
--- NOTE | 2016-12-06 17:09 | PDOC DISCHARGE SUMMARY ---
General - Admit/Disc Date/PCP Admission Date/Primary Care Provider: 12/06/16 01:54 GELA AUGUSTE MD Discharge Date: 12/06/16 - Discharge Diagnosis (1) Atrial fibrillation with RVR Is this a current diagnosis for this admission?: Yes Summary: Patient was admitted to our hospital overnight where he was placed on diltiazem drip. Diltiazem drip was discontinued and patient was placed on oral diltiazem. Patient was told not to restart Rythmol due to the interaction between diltiazem and Rythmol. Patient's benazepril was decreased to 5 mg p.o. daily due to patient's improved blood pressure on diltiazem. Patient was instructed to follow-up with his earring maker within 1 week. - Additional Information Resuscitation Status: Full Code Discharge Diet: Cardiac Discharge Activity: Activity As Tolerated Home Medications: Aspirin [Aspirin 81 mg Chewable Tablet] 81 mg PO DAILY 08/25/11 Simvastatin [Zocor 40 mg Tablet] 40 mg PO QHS 08/25/11 Warfarin Sodium [Coumadin] 5 mg PO DAILY 08/25/11 Allopurinol [Zyloprim 300 mg Tablet] 300 mg PO DAILY 12/18/14 Benazepril HCl 5 mg PO DAILY #30 tablet 12/06/16 Diltiazem HCl [Cardizem Cd 120 mg Capsule] 120 mg PO DAILY 30 Days #30 cap.sr.24h 12/06/16 Sucralfate [Carafate 1 gm Tablet] 1 gm PO QID 12/06/16 History of Present Illness History of Present Illness: ANGELITO SORTO is a 71 year old male to our facility with complaint of rapid heart rate that was irregular. Patient reported to the admitting doctor that he normally is not aware of his heart rhythm however that day he was able to tell that his heart was beating irregularly. The patient was admitted to the hospital patient was found to be in A. fib with RVR. Patient was placed on a diltiazem drip and patient was rate controlled. Patient was transitioned over to oral diltiazem. Patient was told to discontinue taking Rythmol. Patient's benazepril dose was decreased to 5 mg because blood pressure was under better control with diltiazem. Patient was told to follow-up with his earring maker within 1 week. Patient was told to return if he experiences chest pain or shortness of breath or irregular heart rate. Of note patient was very angry about being at [facility]. His anger was carried out on all hospital staff including his discharging physician. Patient at one point during hospitalization had fired his discharging physician but later stated that he was okay with seeing his discharge physician for continuation of care. Patient demanded discharge from hospital for today. Cardiology was consulted. Patient stated that he did not want to see Dr. Stafford. All of these events were documented and recorded. Patient's was present who apologize for her 's behavior. She stated that her only came to our facility due to convenience. She stated that his behavior was in no reflection to the care that he had received during this admission but related to prior experiences here at this hospital. Patient was seen at time of discharge and told to not take Rythmol due to the severe interaction it can have with diltiazem. Patient was also told that his benazepril dose had been reduced to 5 mg. Patient was given a prescription for diltiazem and for benazepril. Physical Exam Vital Signs: Temp Pulse Resp BP Pulse Ox 98.6 F 73 16 116/71 97 12/06/16 15:47 12/06/16 15:47 12/06/16 15:47 12/06/16 15:16 12/06/16 15:47 Intake & Output 12/05/16 12/06/16 12/07/16 06:59 06:59 06:59 Intake Total 66 237 Balance 66 237 General appearance: PRESENT: no acute distress, well-developed, well-nourished Head exam: PRESENT: atraumatic, normocephalic Eye exam: PRESENT: conjunctiva pink, EOMI, PERRLA. ABSENT: scleral icterus Ear exam: PRESENT: normal external ear exam Mouth exam: PRESENT: moist, tongue midline Neck exam: ABSENT: carotid bruit, JVD, lymphadenopathy, thyromegaly Respiratory exam: PRESENT: clear to auscultation shaheed. ABSENT: rales, rhonchi, wheezes Cardiovascular exam: PRESENT: irregular rhythm Pulses: PRESENT: normal dorsalis pedis pul Vascular exam: PRESENT: normal capillary refill GI/Abdominal exam: PRESENT: normal bowel sounds, soft. ABSENT: distended, guarding, mass, organolmegaly, rebound, tenderness Rectal exam: PRESENT: deferred Extremities exam: PRESENT: full ROM. ABSENT: calf tenderness, clubbing, pedal edema Neurological exam: PRESENT: alert, awake, oriented to person, oriented to place , oriented to time, oriented to situation, CN II-XII grossly intact. ABSENT: motor sensory deficit Psychiatric exam: PRESENT: appropriate affect, normal mood. ABSENT: homicidal ideation, suicidal ideation Skin exam: PRESENT: dry, intact, warm. ABSENT: cyanosis, rash Results Laboratory Results: 12/06/16 10:14 Troponin I < 0.012 Impressions: Chest X-Ray 12/05/16 18:24 IMPRESSION: NO ACUTE RADIOGRAPHIC FINDING IN THE CHEST.
[2016-12-06 17:26] VITALS: BP 110/83
[2016-12-07] MEDS ORDERED: DILTIAZEM HCL 120 MG CAP.SR.24H PO SCH (10:00)
== END 2016-12-06 17:40 | disposition home or self-care (01) | DRG 310 ==
LOC: ER 18:04 → EH 22:11 → UNDOADMIN 22:11 → EH 12-06 00:30 → 3S 12-06 00:30 → EH 12-06 01:54
PROVIDERS: ADMIT Family Medicine; ATTEND Family Medicine
DX: I48.0 Paroxysmal atrial fibrillation (principal); I10 Essential (primary) hypertension; E78.5 Hyperlipidemia, unspecified; G47.33 Obstructive sleep apnea (adult) (pediatric); Z79.01 Long term (current) use of anticoagulants; Z79.899 Other long term (current) drug therapy
CPT/HCPCS: 36415; 71010; 80053; 81001; 82550; 83735; 84443; 84484; 85025; 85610; 93005; 93010; J3490; L1830

== ENCOUNTER → 2016-12-29 | Outpatient (CLI) | payer MEDICARE, BC ==
[2016-12-29 16:19] LABS: PROTHROMBIN TIME 25.5 SEC (11.4-15.4)
== END ==
LOC: OD 14:38
PROVIDERS: ATTEND Internal Medicine
DX: I48.0 Paroxysmal atrial fibrillation (principal); Z79.01 Long term (current) use of anticoagulants
CPT/HCPCS: 36415; 85610

== ENCOUNTER → 2017-02-22 | Outpatient (CLI) | payer MEDICARE, BC ==
--- NOTE | 2017-02-22 09:11 | RADIOLOGY REPORT (SQ) ---
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 CT abdomen and pelvis from 04/21/2016. TECHNIQUE: CT scan of the chest performed using helical scanning technique with dynamic intravenous contrast injection. Images reviewed with lung, soft tissue and bone windows. Reconstructed coronal a nd sagittal MPR images reviewed. All images stored on PACS. All CT scanners at this facility use dose modulation, iterative reconstruction, and/or weight based d osing when appropriate to reduce radiation dose to as low as reasonably achievable (ALARA). [facility]: Dose Right [facility]: CareDose [facility]: Dose Right [facility]: Teradose 4D [facility]: Celebration Creation RADIATION DOSE: CT Rad equipment meets quality standard of care and radiation dose reduction techniq ues were employed. CTDIvol: 14.6 - 16.7 mGy. DLP: 2429 mGy-cm.. LIMITATIONS: None. FINDINGS: AXILLAE: No adenopathy. CHEST WALL: No masses. No subcutaneous air. LUNGS: Relatively ground-glass 5 mm nodule apex right lower lobe. Subpleural more solid-appearing 4 mm nodule apex left lower lobe laterally. No change in these nodules compared to October. Focal grou nd-glass opacity in the right middle lobe has resolved. PLEURA: No effusions. No calcifications. THYROID: No masses or significant asymmetry. HILAR AND MEDIASTINAL STRUCTURES: No identified masses or abnormal nodes. AORTA AND GREAT VESSELS: No aneurysm. No dissection. PULMONARY ARTERIES: No identified pulmonary emboli. Study not optimized for the pulmonary arteries. HEART: No pericardial effusion. HARDWARE AND LIFELINES: Left pacer. BONES: No significant finding. OTHER: No other significant finding. IMPRESSION: 1. Right middle lobe ground-glass opacity has resolved since October. 2 additional pulm onary nodules are stable, as noted above. COMPARISON: As above. No postoperative imaging available, status post reported Whipple in May. RADIATION DOSE: CT Rad equipment meets quality standard of care and radiation dose reduction techniq ues were employed. CTDIvol: 14.6 - 16.7 mGy. DLP: 2429 mGy-cm.mGy. TECHNIQUE: CT scan of the abdomen and pelvis performed with intravenous and oral contrast using bonifacio katerina scanning technique with dynamic intravenous contrast injection. Images reviewed with lung, soft tissue and bone windows. Reconstructed coronal and sagittal MPR images reviewed. Delayed images for evaluation of the urinary system also acquired and evaluated. All images stored on PACS. All CT scanners at this facility use dose modulation, iterative reconstruction, and/or weight based d osing when appropriate to reduce radiation dose to as low as reasonably achievable (ALARA). [facility]: Dose Right [facility]: SureCare [facility]: Dose Right [facility]: Teradose 4D [facility]: Celebration Creation FINDINGS: LIVER: Normal size. No masses. No dilated ducts. SPLEEN: Normal size. No focal lesions. PANCREAS: Partial resection status post Whipple. Body and tail look normal. GALLBLADDER: Surgically absent. ADRENAL GLANDS: No significant masses or asymmetry. RIGHT KIDNEY AND URETER: Nonobstructive nephrolithiasis. No ureteral stones. No mass. LEFT KIDNEY AND URETER: Nonobstructive nephrolithiasis. No ureteral stones. No mass. AORTA AND VESSELS: Atherosclerotic aorta. No aortic occlusion. No venous clot. RETROPERITONEUM: No retroperitoneal adenopathy, hemorrhage or masses. LARGE AND SMALL BOWEL: Status post Whipple procedure. Small hiatal hernia. Stomach unremarkable. N o dilated small bowel loops. Large bowel normal. Moderate stool. APPENDIX: Normal. ABDOMINAL WALL: No hernia or masses. PERITONEAL CAVITY: Scattered subcentimeter mesenteric lymph nodes. Up to just at 1 cm maximal dimens ion. No ascites. No bulky implants. PELVIS: No mass or free fluid. Normal bladder. BONES: No significant or acute findings. OTHER: No other significant finding. IMPRESSION: 1. Postoperative changes now noted. Status post Whipple. No evidence of overt metastat ic disease. Shotty mesenteric nodes are present. 2. Nonobstructive nephrolithiasis bilaterally. TECHNICAL DOCUMENTATION: JOB ID: [id number] Quality ID # [id number]: Final reports with documentation of one or more dose reduction techniques (e.g., Au tomated exposure control, adjustment of the mA and/or kV according to patient size, use of iterative reconstruction technique) 2010 [employer]- All Rights Reserved
== END ==
LOC: RAD 07:29
PROVIDERS: ATTEND Internal Medicine Hematology & Oncology
DX: C24.1 Malignant neoplasm of ampulla of Vater (principal); R91.1 Solitary pulmonary nodule
CPT/HCPCS: 71260; 74177; 82565

== ENCOUNTER → 2017-03-02 | Outpatient (CLI) | payer MEDICARE, BC ==
[2017-03-02 16:15] LABS: PROTHROMBIN TIME 31.5 SEC (11.4-15.4)
== END ==
LOC: OD 14:55
PROVIDERS: ATTEND Internal Medicine
DX: I48.0 Paroxysmal atrial fibrillation (principal)
CPT/HCPCS: 36415; 85610

== ENCOUNTER → 2017-04-04 | Outpatient (CLI) | payer MEDICARE, BC ==
[2017-04-04 16:08] LABS: INTERNATIONAL RATION (INR) 1.65; PROTHROMBIN TIME 20.5 SEC (11.4-15.4)
== END ==
LOC: OD 15:22
PROVIDERS: ATTEND Internal Medicine
DX: I48.0 Paroxysmal atrial fibrillation (principal)
CPT/HCPCS: 36415; 85610

== ENCOUNTER → 2017-05-03 | Outpatient (CLI) | payer MEDICARE, BC ==
[2017-05-03 16:34] LABS: INTERNATIONAL RATION (INR) 3.62; PROTHROMBIN TIME 37.7 SEC (11.4-15.4)
== END ==
LOC: OD 15:03
PROVIDERS: ATTEND Internal Medicine
DX: I48.0 Paroxysmal atrial fibrillation (principal)
CPT/HCPCS: 36415; 85610

== ENCOUNTER → 2017-06-08 | Outpatient (CLI) | payer MEDICARE, BC ==
[2017-06-08 16:56] LABS: INTERNATIONAL RATION (INR) 2.65; PROTHROMBIN TIME 29.6 SEC (11.4-15.4)
== END ==
LOC: OD 15:32
PROVIDERS: ATTEND Internal Medicine
DX: I48.0 Paroxysmal atrial fibrillation (principal)
CPT/HCPCS: 36415; 85610

== ENCOUNTER → 2017-08-01 | Outpatient (CLI) | payer MEDICARE, BC ==
[2017-08-01 14:55] LABS: INTERNATIONAL RATION (INR) 2.92; PROTHROMBIN TIME 31.9 SEC (11.4-15.4)
== END ==
LOC: OD 13:42
PROVIDERS: ATTEND Internal Medicine
DX: I48.0 Paroxysmal atrial fibrillation (principal)
CPT/HCPCS: 36415; 85610

== ENCOUNTER → 2017-08-10 | Outpatient (CLI) | payer MEDICARE, BC | LOC: OD 15:23 | PROVIDERS: ATTEND Surgery | DX: C24.1 Malignant neoplasm of ampulla of Vater (principal) | CPT/HCPCS: 36415; 82565 ==

== ENCOUNTER → 2017-09-26 | Outpatient (CLI) | payer MEDICARE, BC ==
[2017-09-26 16:48] LABS: INTERNATIONAL RATION (INR) 2.43; PROTHROMBIN TIME 27.6 SEC (11.4-15.4)
== END ==
LOC: OD 16:14
PROVIDERS: ATTEND Internal Medicine
DX: I48.0 Paroxysmal atrial fibrillation (principal)
CPT/HCPCS: 36415; 85610

== ENCOUNTER → 2017-10-31 | Outpatient (CLI) | payer MEDICARE, BC ==
[2017-10-31 17:49] LABS: INTERNATIONAL RATION (INR) 2.56; PROTHROMBIN TIME 28.7 SEC (11.4-15.4)
== END ==
LOC: OD 16:23
PROVIDERS: ATTEND Internal Medicine
DX: I48.0 Paroxysmal atrial fibrillation (principal)
CPT/HCPCS: 36415; 85610

== ENCOUNTER → 2017-12-06 | Outpatient (CLI) | payer MEDICARE, BC ==
[2017-12-06 10:34] LABS: ABSOLUTE BASOPHILS # (AUTO) 0.1 10^3/uL (0.0-0.2); ABSOLUTE EOSINOPHILS # (AUTO) 0.4 10^3/uL (0.0-0.6); ABSOLUTE LYMPHOCYTES (AUTO) 1.6 10^3/uL (0.5-4.7); ABSOLUTE MONOCYTES (AUTO) 0.5 10^3/uL (0.1-1.4); ABSOLUTE NEUT (AUTO) 5.7 10^3/uL (1.7-8.2); BASOPHILS % (AUTO) 0.7 % (0-2); EOSINOPHILS % (AUTO) 4.4 % (0-6); HEMATOCRIT 45.7 % (37.9-51.0); HEMOGLOBIN 15.7 g/dL (13.5-17.0); LYMPHOCYTES % (AUTO) 19.1 % (13-45); MEAN CORPUSCULAR HEMOGLOBIN 31.2 pg (27.0-33.4); MEAN CORPUSCULAR HGB CONC 34.4 g/dL (32.0-36.0); MEAN CORPUSCULAR VOLUME 91 fl (80-97); MONOCYTES % (AUTO) 6.5 % (3-13); PLATELET COUNT 226 10^3/uL (150-450); RED BLOOD COUNT 5.05 10^6/uL (4.35-5.55); RED CELL DISTRIBUTION WIDTH 15.1 % (11.5-14.0); SEGMENTED NEUTROPHILS % (AUTO) 69.3 % (42-78); TOTAL CELLS COUNTED % (AUTO) 100 %; WHITE BLOOD COUNT 8.2 10^3/uL (4.0-10.5)
[2017-12-06 10:52] LABS: ALANINE AMINOTRANSFERASE 45 U/L (21-72); ALBUMIN 4.3 g/dL (3.5-5.0); ALKALINE PHOSPHATASE 77 U/L (38-126); ANION GAP 11 (5-19); ASPARTATE AMINO TRANSFERASE 25 U/L (17-59); BILIRUBIN,DIRECT 0.3 mg/dL (0.0-0.4); BILIRUBIN,TOTAL 0.6 mg/dL (0.2-1.3); BLOOD UREA NITROGEN 66 mg/dL (7-20); CALCIUM 10.4 mg/dL (8.4-10.2); CARBON DIOXIDE 27 mmol/L (22-30); CHLORIDE 101 mmol/L (98-107); CHOLESTEROL 168.84 mg/dL (0-200); GLUCOSE 100 mg/dL (75-110); SODIUM 138.6 mmol/L (137-145); TRIGLYCERIDES 245 mg/dL (<150)
[2017-12-06 11:03] LABS: DIRECT LDL 80 mg/dL (<100)
[2017-12-06 11:35] LABS: POTASSIUM 6.3 mmol/L (3.6-5.0)
[2017-12-06 12:08] LABS: INTERNATIONAL RATION (INR) 4.48; PROTHROMBIN TIME 44.6 SEC (11.4-15.4)
== END ==
LOC: OD 09:42
PROVIDERS: ATTEND Internal Medicine
DX: E78.00 Pure hypercholesterolemia, unspecified (principal); R35.0 Frequency of micturition; Z12.5 Encounter for screening for malignant neoplasm of prostate; I48.0 Paroxysmal atrial fibrillation; Z79.899 Other long term (current) drug therapy
CPT/HCPCS: 36415; 85025; 85610; 80053; 80061; G0103

== ENCOUNTER → 2017-12-30 | Outpatient (CLI) | payer MEDICARE, BC ==
--- NOTE | 2017-12-30 14:35 | RADIOLOGY REPORT (SQ) ---
EXAM DESCRIPTION: NM GASTRIC EMPTYING STUDY COMPLETED DATE/TIME: 12/30/2017 12:28 pm REASON FOR STUDY: EPIGASTRIC PAIN R10.13 EPIGASTRIC PAIN COMPARISON: None. RADIONUCLIDE AND DOSE: 2.25 millicuries Tc-99m Sulfur Colloid. A wide variety of solid foods have been used. The route of agent administration: Oral. TECHNIQUE: 1 minute serial static imaging performed at time of meal, 1 hour, 2 hours, 3 hours, and 4 hours as needed. Once stomach reaches 90% emptying, the test is complete. Image intensity values pl otted with respect to time with linear regression algorithm. LIMITATIONS: None. FINDINGS: Patient was observed for 4 hours. Immediate post meal serves as baseline. Gastric emptying at 30 minutes was 13.2%. Gastric emptying at 60 minutes was 24.7% Gastric emptying at 90 minutes was 34.7%. Gastric emptying at 120 minutes was 43.3%. Gastric emptying at 240 minutes was 67.9% Normal values: 60 minutes: 30-90% retained. If less than 30%, abnormally rapid emptying. If greater than 90%, del ayed gastric emptying. 120 minutes: <60% retained. If greater than 60%, delayed gastric emptying. 240 minutes: <10% retained. If greater than 10%, delayed gastric emptying. IMPRESSION: Gastroparesis. TECHNICAL DOCUMENTATION: JOB ID: [id number] [employer] All Rights Reserved rev Reading location - IP/workstation name: [email or web address]
== END ==
LOC: RAD 07:27
PROVIDERS: ATTEND Internal Medicine Gastroenterology
DX: R10.13 Epigastric pain (principal)
CPT/HCPCS: 78264; A9541

== ENCOUNTER → 2018-01-09 | Outpatient (CLI) | payer MEDICARE, BC | LOC: OD 16:09 | PROVIDERS: ATTEND Internal Medicine | DX: Z53.9 Procedure and treatment not carried out, unspecified reason (principal) ==

== ENCOUNTER → 2018-01-10 | Outpatient (CLI) | payer MEDICARE, BC ==
[2018-01-10 14:08] LABS: INTERNATIONAL RATION (INR) 7.79
== END ==
LOC: OD 11:14
PROVIDERS: ATTEND Internal Medicine
DX: I48.0 Paroxysmal atrial fibrillation (principal)
CPT/HCPCS: 36415; 85610

== ENCOUNTER → 2018-01-18 | Outpatient (CLI) | payer MEDICARE, BC ==
[2018-01-18 08:22] LABS: INTERNATIONAL RATION (INR) 1.25; PROTHROMBIN TIME 16.3 SEC (11.4-15.4)
[2018-01-18 08:34] LABS: ANION GAP 6 (5-19); BLOOD UREA NITROGEN 17 mg/dL (7-20); CALCIUM 9.4 mg/dL (8.4-10.2); CARBON DIOXIDE 28 mmol/L (22-30); CHLORIDE 106 mmol/L (98-107); GLUCOSE 112 mg/dL (75-110); SODIUM 140.1 mmol/L (137-145)
== END ==
LOC: OD 07:33
PROVIDERS: ATTEND Internal Medicine
DX: I12.9 Hypertensive chronic kidney disease with stage 1 through stage 4 chronic kidney disease, or unspecified chronic kidney disease (principal); N18.4 Chronic kidney disease, stage 4 (severe); I48.0 Paroxysmal atrial fibrillation
CPT/HCPCS: 36415; 80048; 85610

== ENCOUNTER → 2018-01-30 | Outpatient (CLI) | payer MEDICARE, BC ==
[2018-01-30 16:12] LABS: INTERNATIONAL RATION (INR) 2.62; PROTHROMBIN TIME 29.2 SEC (11.4-15.4)
== END ==
LOC: OD 15:00
PROVIDERS: ATTEND Internal Medicine
DX: I48.0 Paroxysmal atrial fibrillation (principal)
CPT/HCPCS: 36415; 85610

== ENCOUNTER → 2018-03-01 | Outpatient (CLI) | payer MEDICARE, BC ==
[2018-03-01 14:41] LABS: INTERNATIONAL RATION (INR) 1.36; PROTHROMBIN TIME 17.5 SEC (11.4-15.4)
== END ==
LOC: OD 13:55
PROVIDERS: ATTEND Internal Medicine
DX: I48.0 Paroxysmal atrial fibrillation (principal)
CPT/HCPCS: 36415; 85610

== ENCOUNTER → 2018-04-07 | Outpatient (CLI) | payer MEDICARE, BC ==
[2018-04-07 11:12] LABS: PROTHROMBIN TIME 23.7 SEC (11.4-15.4)
[2018-04-07 11:56] LABS: BLOOD UREA NITROGEN 19 mg/dL (7-20)
== END ==
LOC: OD 10:00
PROVIDERS: ATTEND Internal Medicine
DX: I10 Essential (primary) hypertension (principal); I48.0 Paroxysmal atrial fibrillation
CPT/HCPCS: 36415; 82565; 84520; 85610

== ENCOUNTER → 2018-05-04 | Outpatient (CLI) | payer MEDICARE, BC ==
[2018-05-04 15:36] LABS: INTERNATIONAL RATION (INR) 1.95; PROTHROMBIN TIME 23.2 SEC (11.4-15.4)
== END ==
LOC: OD 14:55
PROVIDERS: ATTEND Internal Medicine
DX: I48.0 Paroxysmal atrial fibrillation (principal)
CPT/HCPCS: 36415; 85610

== ENCOUNTER → 2018-06-01 | Outpatient (CLI) | payer MEDICARE, BC ==
[2018-06-01 14:48] LABS: INTERNATIONAL RATION (INR) 1.98; PROTHROMBIN TIME 23.5 SEC (11.4-15.4)
== END ==
LOC: OD 14:02
PROVIDERS: ATTEND Internal Medicine
DX: I48.0 Paroxysmal atrial fibrillation (principal)
CPT/HCPCS: 36415; 85610

== ENCOUNTER → 2018-07-03 | Outpatient (CLI) | payer MEDICARE, BC ==
[2018-07-03 16:31] LABS: PROTHROMBIN TIME 23.6 SEC (11.4-15.4)
== END ==
LOC: OD 14:39
PROVIDERS: ATTEND Internal Medicine
DX: I48.0 Paroxysmal atrial fibrillation (principal)
CPT/HCPCS: 36415; 85610

== ENCOUNTER → 2018-08-08 | Outpatient (CLI) | payer MEDICARE, BC ==
[2018-08-08 14:53] LABS: INTERNATIONAL RATION (INR) 2.15
== END ==
LOC: OD 14:03
PROVIDERS: ATTEND Internal Medicine
DX: I48.0 Paroxysmal atrial fibrillation (principal)
CPT/HCPCS: 36415; 85610

== ENCOUNTER → 2018-09-04 | Outpatient (CLI) | payer MEDICARE, BC ==
[2018-09-04 16:52] LABS: INTERNATIONAL RATION (INR) 1.94; PROTHROMBIN TIME 23.1 SEC (11.4-15.4)
== END ==
LOC: OD 15:28
PROVIDERS: ATTEND Internal Medicine
DX: I48.0 Paroxysmal atrial fibrillation (principal)
CPT/HCPCS: 36415; 85610

== ENCOUNTER → 2018-10-05 | Outpatient (CLI) | payer MEDICARE, BC ==
[2018-10-05 15:40] LABS: INTERNATIONAL RATION (INR) 2.03; PROTHROMBIN TIME 23.3 SEC (11.4-15.4)
== END ==
LOC: OD 15:08
PROVIDERS: ATTEND Internal Medicine
DX: I48.0 Paroxysmal atrial fibrillation (principal)
CPT/HCPCS: 36415; 85610

== ENCOUNTER → 2018-10-17 | Outpatient (CLI) | payer MEDICARE, BC ==
[2018-10-17 08:20] LABS: ABSOLUTE EOSINOPHILS # (AUTO) 0.3 10^3/uL (0.0-0.6); ABSOLUTE LYMPHOCYTES (AUTO) 1.3 10^3/uL (0.5-4.7); ABSOLUTE MONOCYTES (AUTO) 0.4 10^3/uL (0.1-1.4); ABSOLUTE NEUT (AUTO) 3.8 10^3/uL (1.7-8.2); BASOPHILS % (AUTO) 0.5 % (0-2); HEMATOCRIT 46.2 % (37.9-51.0); HEMOGLOBIN 15.8 g/dL (13.5-17.0); LYMPHOCYTES % (AUTO) 21.9 % (13-45); MEAN CORPUSCULAR HEMOGLOBIN 31.8 pg (27.0-33.4); MEAN CORPUSCULAR HGB CONC 34.3 g/dL (32.0-36.0); MEAN CORPUSCULAR VOLUME 93 fl (80-97); MONOCYTES % (AUTO) 6.9 % (3-13); PLATELET COUNT 147 10^3/uL (150-450); RED BLOOD COUNT 4.98 10^6/uL (4.35-5.55); RED CELL DISTRIBUTION WIDTH 14.3 % (11.5-14.0); SEGMENTED NEUTROPHILS % (AUTO) 65.7 % (42-78); TOTAL CELLS COUNTED % (AUTO) 100 %; WHITE BLOOD COUNT 5.7 10^3/uL (4.0-10.5)
[2018-10-17 08:51] LABS: ALANINE AMINOTRANSFERASE 31 U/L (21-72); ALKALINE PHOSPHATASE 63 U/L (38-126); ANION GAP 8 (5-19); ASPARTATE AMINO TRANSFERASE 23 U/L (17-59); BILIRUBIN,DIRECT 0.2 mg/dL (0.0-0.4); BILIRUBIN,TOTAL 0.4 mg/dL (0.2-1.3); BLOOD UREA NITROGEN 20 mg/dL (7-20); CALCIUM 9.3 mg/dL (8.4-10.2); CARBON DIOXIDE 29 mmol/L (22-30); CHLORIDE 106 mmol/L (98-107); CHOLESTEROL 171.31 mg/dL (0-200); GLUCOSE 105 mg/dL (75-110); POTASSIUM 4.8 mmol/L (3.6-5.0); TOTAL PROTEIN 6.3 g/dL (6.3-8.2); TRIGLYCERIDES 301 mg/dL (<150)
[2018-10-17 09:03] LABS: DIRECT LDL 90 mg/dL (<100)
[2018-10-17 09:26] LABS: VLDL CHOLESTEROL 60.2 mg/dL (10-31)
== END ==
LOC: OD 07:03
PROVIDERS: ATTEND Internal Medicine
DX: I10 Essential (primary) hypertension (principal); I48.0 Paroxysmal atrial fibrillation; R35.0 Frequency of micturition; Z12.5 Encounter for screening for malignant neoplasm of prostate; Z86.39 Personal history of other endocrine, nutritional and metabolic disease
CPT/HCPCS: 36415; 80053; 80061; 84153; 85025

== ENCOUNTER → 2018-11-06 | Outpatient (CLI) | payer MEDICARE, BC ==
[2018-11-06 16:10] LABS: INTERNATIONAL RATION (INR) 1.89
== END ==
LOC: OD 15:18
PROVIDERS: ATTEND Internal Medicine
DX: I48.0 Paroxysmal atrial fibrillation (principal)
CPT/HCPCS: 36415; 85610

== ENCOUNTER → 2018-12-06 | Outpatient (CLI) | payer MEDICARE, BC ==
[2018-12-06 16:08] LABS: PROTHROMBIN TIME 23.9 SEC (11.4-15.4)
== END ==
LOC: OD 14:37
PROVIDERS: ATTEND Internal Medicine
DX: I48.0 Paroxysmal atrial fibrillation (principal)
CPT/HCPCS: 36415; 85610

== ENCOUNTER → 2019-01-01 | Outpatient (CLI) | payer MEDICARE, BC ==
[2019-01-01 16:29] LABS: INTERNATIONAL RATION (INR) 2.06; PROTHROMBIN TIME 23.5 SEC (11.4-15.4)
== END ==
LOC: OD 15:34
PROVIDERS: ATTEND Internal Medicine
DX: I48.0 Paroxysmal atrial fibrillation (principal)
CPT/HCPCS: 36415; 85610

== ENCOUNTER → 2019-02-12 | Outpatient (CLI) | payer MEDICARE, BC ==
[2019-02-12 15:25] LABS: INTERNATIONAL RATION (INR) 2.03; PROTHROMBIN TIME 23.3 SEC (11.4-15.4)
== END ==
LOC: OD 14:50
PROVIDERS: ATTEND Internal Medicine
DX: I48.0 Paroxysmal atrial fibrillation (principal)
CPT/HCPCS: 36415; 85610

== ENCOUNTER → 2019-03-06 | Outpatient (CLI) | payer MEDICARE, BC ==
[2019-03-06 15:56] LABS: INTERNATIONAL RATION (INR) 1.96; PROTHROMBIN TIME 22.6 SEC (11.4-15.4)
== END ==
LOC: OD 15:20
PROVIDERS: ATTEND Internal Medicine
DX: I48.0 Paroxysmal atrial fibrillation (principal)
CPT/HCPCS: 36415; 85610

== ENCOUNTER → 2019-04-09 | Outpatient (CLI) | payer MEDICARE, BC ==
[2019-04-09 15:37] LABS: INTERNATIONAL RATION (INR) 2.39; PROTHROMBIN TIME 26.5 SEC (11.4-15.4)
== END ==
LOC: OD 14:51
PROVIDERS: ATTEND Internal Medicine
DX: I48.0 Paroxysmal atrial fibrillation (principal)
CPT/HCPCS: 36415; 85610

== ENCOUNTER → 2019-04-20 | Outpatient (CLI) | payer MEDICARE, BC ==
[2019-04-20 08:10] LABS: ABSOLUTE EOSINOPHILS # (AUTO) 0.2 10^3/uL (0.0-0.6); ABSOLUTE LYMPHOCYTES (AUTO) 1.1 10^3/uL (0.5-4.7); ABSOLUTE MONOCYTES (AUTO) 0.6 10^3/uL (0.1-1.4); ABSOLUTE NEUT (AUTO) 3.5 10^3/uL (1.7-8.2); BASOPHILS % (AUTO) 0.5 % (0-2); EOSINOPHILS % (AUTO) 4.5 % (0-6); HEMATOCRIT 50.8 % (37.9-51.0); HEMOGLOBIN 17.4 g/dL (13.5-17.0); LYMPHOCYTES % (AUTO) 19.7 % (13-45); MEAN CORPUSCULAR HGB CONC 34.3 g/dL (32.0-36.0); MEAN CORPUSCULAR VOLUME 93 fl (80-97); MONOCYTES % (AUTO) 10.6 % (3-13); PLATELET COUNT 171 10^3/uL (150-450); RED BLOOD COUNT 5.44 10^6/uL (4.35-5.55); RED CELL DISTRIBUTION WIDTH 14.2 % (11.5-14.0); SEGMENTED NEUTROPHILS % (AUTO) 64.7 % (42-78); TOTAL CELLS COUNTED % (AUTO) 100 %; WHITE BLOOD COUNT 5.4 10^3/uL (4.0-10.5)
[2019-04-20 08:24] LABS: ALKALINE PHOSPHATASE 95 U/L (38-126); ANION GAP 9 (5-19); ASPARTATE AMINO TRANSFERASE 62 U/L (17-59); BILIRUBIN,DIRECT 0.3 mg/dL (0.0-0.4); BILIRUBIN,TOTAL 0.6 mg/dL (0.2-1.3); BLOOD UREA NITROGEN 19 mg/dL (7-20); CALCIUM 9.5 mg/dL (8.4-10.2); CARBON DIOXIDE 32 mmol/L (22-30); CHLORIDE 97 mmol/L (98-107); CHOLESTEROL 187.33 mg/dL (0-200); GLUCOSE 155 mg/dL (75-110); POTASSIUM 4.2 mmol/L (3.6-5.0); TOTAL PROTEIN 6.8 g/dL (6.3-8.2); TRIGLYCERIDES 305 mg/dL (<150)
[2019-04-20 08:35] LABS: DIRECT LDL 101 mg/dL (<100)
== END ==
LOC: OD 07:05
PROVIDERS: ATTEND Internal Medicine
DX: I10 Essential (primary) hypertension (principal); I48.0 Paroxysmal atrial fibrillation; R35.0 Frequency of micturition; Z12.5 Encounter for screening for malignant neoplasm of prostate; Z79.899 Other long term (current) drug therapy; E78.00 Pure hypercholesterolemia, unspecified
CPT/HCPCS: 36415; 80053; 80061; 84153; 85025

== ENCOUNTER → 2019-05-09 | Outpatient (CLI) | payer MEDICARE, BC ==
[2019-05-09 16:26] LABS: INTERNATIONAL RATION (INR) 2.17; PROTHROMBIN TIME 24.5 SEC (11.4-15.4)
== END ==
LOC: OD 14:58
PROVIDERS: ATTEND Internal Medicine
DX: I48.0 Paroxysmal atrial fibrillation (principal)
CPT/HCPCS: 36415; 85610

== ENCOUNTER → 2019-05-31 | Outpatient (CLI) | payer MEDICARE, BC ==
[2019-05-31 16:48] LABS: INTERNATIONAL RATION (INR) 1.87; PROTHROMBIN TIME 21.8 SEC (11.4-15.4)
== END ==
LOC: OD 15:32
PROVIDERS: ATTEND Internal Medicine
DX: I48.0 Paroxysmal atrial fibrillation (principal)
CPT/HCPCS: 36415; 85610

== ENCOUNTER → 2019-07-18 | Outpatient (CLI) | payer MEDICARE, BC ==
[2019-07-18 09:41] LABS: INTERNATIONAL RATION (INR) 2.81; PROTHROMBIN TIME 30.2 SEC (11.4-15.4)
== END ==
LOC: OD 08:43
PROVIDERS: ATTEND Internal Medicine
DX: I48.0 Paroxysmal atrial fibrillation (principal); R73.9 Hyperglycemia, unspecified
CPT/HCPCS: 36415; 82947; 83036; 85610

== ENCOUNTER → 2019-09-03 | Outpatient (CLI) | payer MEDICARE, BC ==
[2019-09-03 14:46] LABS: INTERNATIONAL RATION (INR) 1.77; PROTHROMBIN TIME 20.8 SEC (11.4-15.4)
== END ==
LOC: OD 14:07
PROVIDERS: ATTEND Internal Medicine
DX: I48.0 Paroxysmal atrial fibrillation (principal)
CPT/HCPCS: 36415; 85610

== ENCOUNTER → 2019-10-02 | Outpatient (CLI) | payer MEDICARE, BC ==
[2019-10-02 15:54] LABS: INTERNATIONAL RATION (INR) 1.94; PROTHROMBIN TIME 22.4 SEC (11.4-15.4)
== END ==
LOC: OD 14:53
PROVIDERS: ATTEND Internal Medicine
DX: I48.0 Paroxysmal atrial fibrillation (principal)
CPT/HCPCS: 36415; 85610

== ENCOUNTER → 2019-11-06 | Outpatient (CLI) | payer MEDICARE, BC ==
[2019-11-06 15:50] LABS: INTERNATIONAL RATION (INR) 2.38
== END ==
LOC: OD 15:12
PROVIDERS: ATTEND Internal Medicine
DX: I48.0 Paroxysmal atrial fibrillation (principal)
CPT/HCPCS: 36415; 85610

== ENCOUNTER → 2020-01-30 | Outpatient (CLI) | payer MEDICARE, BC ==
[2020-01-30 16:36] LABS: INTERNATIONAL RATION (INR) 1.64; PROTHROMBIN TIME 19.5 SEC (11.4-15.4)
== END ==
LOC: OD 15:41
PROVIDERS: ATTEND Internal Medicine
DX: Z51.89 Encounter for other specified aftercare (principal)
CPT/HCPCS: 36415; 85610

== ENCOUNTER → 2020-03-12 | Outpatient (CLI) | payer MEDICARE, BC ==
[2020-03-12 15:49] LABS: INTERNATIONAL RATION (INR) 1.94; PROTHROMBIN TIME 22.2 SEC (11.4-15.4)
== END ==
LOC: OD 14:36
PROVIDERS: ATTEND Internal Medicine
DX: Z51.81 Encounter for therapeutic drug level monitoring (principal); Z79.01 Long term (current) use of anticoagulants
CPT/HCPCS: 36415; 85610

== ENCOUNTER → 2020-04-03 | Outpatient (CLI) | payer MEDICARE, BC ==
[2020-04-03 08:13] LABS: ABSOLUTE EOSINOPHILS # (AUTO) 0.3 10^3/uL (0.0-0.6); ABSOLUTE MONOCYTES (AUTO) 0.5 10^3/uL (0.1-1.4); ABSOLUTE NEUT (AUTO) 5.1 10^3/uL (1.7-8.2); BASOPHILS % (AUTO) 0.5 % (0-2); EOSINOPHILS % (AUTO) 4.8 % (0-6); HEMOGLOBIN 15.1 g/dL (13.5-17.0); MEAN CORPUSCULAR HEMOGLOBIN 31.8 pg (27.0-33.4); MEAN CORPUSCULAR HGB CONC 34.3 g/dL (32.0-36.0); MEAN CORPUSCULAR VOLUME 93 fl (80-97); MONOCYTES % (AUTO) 6.6 % (3-13); PLATELET COUNT 161 10^3/uL (150-450); RED BLOOD COUNT 4.75 10^6/uL (4.35-5.55); RED CELL DISTRIBUTION WIDTH 14.2 % (11.5-14.0); SEGMENTED NEUTROPHILS % (AUTO) 73.1 % (42-78); TOTAL CELLS COUNTED % (AUTO) 100 %; WHITE BLOOD COUNT 6.9 10^3/uL (4.0-10.5)
[2020-04-03 08:22] LABS: INTERNATIONAL RATION (INR) 1.49; PROTHROMBIN TIME 18.2 SEC (11.4-15.4)
[2020-04-03 08:31] LABS: ALBUMIN 3.9 g/dL (3.5-5.0); ALKALINE PHOSPHATASE 68 U/L (38-126); ANION GAP 7 (5-19); ASPARTATE AMINO TRANSFERASE 35 U/L (17-59); BILIRUBIN,DIRECT 0.2 mg/dL (0.0-0.4); BILIRUBIN,TOTAL 0.6 mg/dL (0.2-1.3); BLOOD UREA NITROGEN 21 mg/dL (7-20); CALCIUM 9.2 mg/dL (8.4-10.2); CARBON DIOXIDE 29 mmol/L (22-30); CHLORIDE 102 mmol/L (98-107); CHOLESTEROL 171.49 mg/dL (0-200); GLUCOSE 129 mg/dL (75-110); POTASSIUM 4.5 mmol/L (3.6-5.0); TOTAL PROTEIN 6.3 g/dL (6.3-8.2); TRIGLYCERIDES 186 mg/dL (<150)
[2020-04-03 08:42] LABS: DIRECT LDL 103 mg/dL (<100)
[2020-04-03 09:07] LABS: VLDL CHOLESTEROL 37.2 mg/dL (10-31)
== END ==
LOC: OD 07:05
PROVIDERS: ATTEND Internal Medicine
DX: I48.0 Paroxysmal atrial fibrillation (principal); E78.00 Pure hypercholesterolemia, unspecified; R73.9 Hyperglycemia, unspecified; Z12.5 Encounter for screening for malignant neoplasm of prostate; Z51.81 Encounter for therapeutic drug level monitoring; Z79.01 Long term (current) use of anticoagulants
CPT/HCPCS: 36415; 85025; 85610; 80053; 80061; G0103